=== PATIENT | male | born 1935 | race Caucasian/White ===

== ENCOUNTER 2018-10-02 11:01 | Emergency (ER) | payer BC ==
--- NOTE | 2018-10-02 11:18 | EDPHY ---
H & P Stated Complaint: FELL OUT OF BED/?FX R CLAVICLE ASSORTED SCRAPES Time Seen by Provider: 10/02/18 11:18 HPI/ROS: CHIEF COMPLAINT: Mechanical fall, right clavicle pain, right rib pain, abrasions HISTORY OF PRESENT ILLNESS: The patient presents to the ED after he accidentally fell out of bed landing on his right shoulder. The patient complains of moderate pain in his right clavicle, right shoulder and right ribs. The patient did not strike his head or lose consciousness. He is not anticoagulated. He has no complaints of headache or neck pain. The patient denies any acute numbness or weakness. He was ambulatory after the fall. REVIEW OF SYSTEMS: Constitutional: normal mentation Eyes: No visual changes ENT: no oral trauma Respiratory: As above, no difficulty breathing Cardiac: No chest pain Gastrointestinal: No nausea, no vomiting, no abdominal pain Genitourinary: No hematuria, no dysuria Musculoskeletal: As above Skin: As above Neurological: No headache, no numbness, no weakness Back: No midline pain Source: Patient Exam Limitations: No limitations - Personal History Current Tetanus Diphtheria and Acellular Pertussis (TDAP): Yes Tetanus Vaccine Date: 2006 - Medical/Surgical History Hx Asthma: No Hx Chronic Respiratory Disease: No Hx Diabetes: Yes Hx Cardiac Disease: Yes Hx Renal Disease: No Hx Cirrhosis: No Hx Alcoholism: No Hx HIV/AIDS: No Hx Splenectomy or Spleen Trauma: No Other PMH: OPEN HEART SURF/DIABETES - Social History Smoking Status: Never smoked - Physical Exam Exam: General Appearance: Alert, no distress Head: Atraumatic, no hematoma Eyes: Pupils equal, round, reactive ENT, Mouth: No hemotympanum, no oral trauma Neck: Nontender, trachea midline Respiratory: Tenderness to palpation right anterior chest wall, no subcutaneous emphysema, tenderness to palpation over right clavicle Cardiovascular: Regular rate and rhythm Abdomen: Abdomen is soft and nontender, pelvis stable Skin: Multiple superficial right-sided extremity abrasions Back: No midline T/L/S pain Extremities: Nontender, full range of motion Constitutional: Initial Vital Signs Temperature (C) 36.8 C 10/02/18 11:06 Heart Rate 66 10/02/18 11:06 Respiratory Rate 17 10/02/18 11:06 Blood Pressure 142/80 H 10/02/18 11:06 O2 Sat (%) 92 10/02/18 11:06 O2 Delivery Mode Room Air Allergies/Adverse Reactions: codeine phosphate [From Tylenol-Codeine #3] Allergy (Severe, Verified 10/02/18 11:06) Other-Enter Comments Home Medications: Medication Instructions Recorded Alendronate Sodium [Fosamax 70 MG 70 mg PO GILL@0700 01/21/13 (RX)] Ascorbic Acid [Vitamin C 250 mg 125 mg PO DAILY 01/21/13 (OTC)] Calcium Carbonate [Calcicarb] 1,300 mg PO BID 01/21/13 Chlorthalidone [Chlorthalidone 25 50 mg PO DAILY 01/21/13 mg (RX)] Cholecalciferol Vit D3 [Vitamin D3 800 units PO DAILY 01/21/13 400 units (OTC)] Insulin Glulisine [Apidra] 28 unit SQ DAILY 01/21/13 MAGNESIUM [Magnesium Oxide 200 mg] 265 mg PO BID 01/21/13 Polyethylene Glycol 3350 [Miralax 17 gm PO DAILY@18 01/21/13 17 gm (OTC)] Vitamin E [Vitamin E 200 units 200 unit PO DAILY 01/21/13 (OTC)] Sod Phos Di, [place]/K Phos [place] 250 mg PO BIDMEAL 01/27/13 [Phospha 250 Neutral Tablet] Zinc 10mg 10 mg PO BID 01/27/13 Aspirin [Ecotrin] 325 mg PO DAILY 05/02/13 Metoprolol Tartrate [Lopressor 25 12.5 mg PO BID 05/02/13 mg (RX)] Simvastatin [Zocor 40 mg (RX)] 40 mg PO DAILY18 05/02/13 Losartan Potassium 10/02/18 Medical Decision Making - Diagnostics Imaging Results: Imaging Impressions Shoulder X-Ray 10/02/18 11:18 Impression: 1. Comminuted displaced right mid clavicle fracture. 2. No definite right humeral head fracture or dislocation. Chest X-Ray 10/02/18 11:36 Impression: 1. Comminuted displaced mid right clavicle fracture. 2. Multiple old mid thoracic compression fractures with kyphosis, unchanged is 2012. Consider DEXA bone scan evaluation for osteoporosis. 3. Cardiomegaly and atherosclerotic aorta. 4. No pneumothorax. Clavicle X-Ray 10/02/18 11:37 Impression: Comminuted displaced right mid clavicle fracture. ED Course/Re-evaluation: The patient presents the emergency department for evaluation of right clavicle pain and rib pain following mechanical fall. The patient is neurologically intact. He did not strike his head or lose consciousness. The patient has tenderness to palpation over his ribs and clavicle. X-rays of these areas demonstrate a comminuted mid clavicle fracture. There is no evidence of obvious displaced rib fractures, pneumothorax or hemothorax. The patient was re-evaluated several times throughout her stay in the ED and has injuries which appear isolated to the clavicle. The patient will be placed in a sling. He is advised to use Tylenol as needed for pain. The patient will be discharged home with instructions to follow up with Dr. Kohler from Orthopedic surgery for further evaluation of his clavicle injury. Differential Diagnosis: Differential diagnosis considered includes clavicle fracture, pneumothorax, hemothorax - Data Points Medications Given: Discontinued Medications Tetracaine/Epinephrine/Lidocaine (Let Gel Topical) 1 ea TP EDNOW ONE Stop: 10/02/18 11:22 Last Admin: 10/02/18 11:30 Dose: 1 ea Departure - Departure Disposition: Home, Routine, Self-Care Clinical Impression: Right clavicle fracture, Chest wall contusion, Abrasions of multiple sites Condition: Good Instructions: Clavicle Fracture (ED) Additional Instructions: 1. Please follow up with the orthopedic surgeon you have been referred to for further evaluation of your clavicle fracture. Wear sling until that time. 2. Tylenol as needed for pain. 3. Return to the ED for markedly worsening symptoms, numbness, weakness, new pain, difficulty breathing or other concerns. Referrals: Anjali Kohler MD [Medical Doctor] - As per Instructions
[2018-10-02] MEDS ORDERED: LET GEL TOPICAL 1 EA SYR TP ONE (11:21)
[2018-10-02 13:12] VITALS: BP 152/78
== END 2018-10-02 13:14 | disposition home or self-care (01) ==
DX: S42.021A Displaced fracture of shaft of right clavicle, initial encounter for closed fracture (principal); S20.211A Contusion of right front wall of thorax, initial encounter; W06.XXXA Fall from bed, initial encounter; Y92.003 Bedroom of unspecified non-institutional (private) residence as the place of occurrence of the external cause; Y93.89 Activity, other specified

== ENCOUNTER 2018-10-19 17:54 | Inpatient (IN) | payer OTHER, BC ==
--- NOTE | 2018-10-19 18:27 | EDPHY ---
H & P Stated Complaint: weakness s/p pain meds Time Seen by Provider: 10/19/18 18:16 HPI/ROS: CHIEF COMPLAINT: Generalized weakness Limitations: pt condition, history via pt's HISTORY OF PRESENT ILLNESS: 83-year-old male presents with generalized weakness. He fell out of bed 2 weeks ago, was seen in the [facility] ED and was diagnosed with a right clavicular fx. After the injury, he developed substantial bruising on the anterior chest wall. The pain has been moderate since the injury and over the past couple of days he has had gradually increasing weakness. Today, he became acutely worse around noon, and now has generalized weakness and difficulty walking. Associated with moderate shortness of breath and some confusion. No recurrent fall and no anticoagulation. REVIEW OF SYSTEMS: complete 10 point ROS reviewed and is negative except for the noted elements in the HPI Source: Patient, Family - Personal History Current Tetanus Diphtheria and Acellular Pertussis (TDAP): Yes Tetanus Vaccine Date: 2006 - Medical/Surgical History Hx Asthma: No Hx Chronic Respiratory Disease: No Hx Diabetes: Yes Hx Cardiac Disease: Yes Hx Renal Disease: No Hx Cirrhosis: No Hx Alcoholism: No Hx HIV/AIDS: No Hx Splenectomy or Spleen Trauma: No Other PMH: OPEN HEART SURF/DIABETES - Social History Smoking Status: Never smoked Alcohol Use: Sober Drug Use: None Additional Social History: - Physical Exam Exam: General Appearance: Alert, tachypneic, ill appearing, mumbling speech Head: Atraumatic Eyes: conjunctival pallor, PERRLA, EOMI ENT, Mouth: No hemotympanum, no oral trauma, no bony tenderness Neck: Nontender, range of motion without pain Respiratory: Ecchymosis over the rt anterior chest wall and in rt axillary area , tachypneic, lungs clear bilaterally anteriorly Cardiovascular: Regular rate and rhythm Abdomen: Abdomen is soft and nontender Skin: no lacerations, no abrasions Back: No midline T/L/S tenderness Extremities: Pelvis is stable and nontender; no extremity tenderness or deformity, range of motion without pain Neurological: alert, oriented to person and place, motor/sensory grossly intact , gait not assessed Psychiatric: flat affect Constitutional: Initial Vital Signs Temperature (C) 35.9 C L 10/19/18 17:57 Heart Rate 81 10/19/18 17:57 Respiratory Rate 36 H 10/19/18 17:57 Blood Pressure 105/62 10/19/18 17:57 O2 Sat (%) 97 10/19/18 17:57 O2 Delivery Mode Room Air Allergies/Adverse Reactions: No Known Allergies Allergy (Verified 10/19/18 18:47) Home Medications: Medication Instructions Recorded Aspirin EC [Aspirin EC 325 mg (*)] 325 mg PO DAILY 10/19/18 Chlorthalidone [Chlorthalidone 25 50 mg PO DAILY 10/19/18 mg (*)] Herbals/Supplements -Info Only 1 ea PO DAILY 10/19/18 Hydrocodone/APAP 5/325 [Seymour 1 each PO Q6 PRN 10/19/18 5/325 (*)] Insulin Pump, Patient Own 1 ea MISC AD 10/19/18 Losartan Potassium [Cozaar 25 mg 25 mg PO DAILY18 10/19/18 (*)] Metoprolol Tartrate [Lopressor 25 12.5 mg PO BIDMEAL 10/19/18 mg (*)] Psyllium Husk (with Sugar) 12 gm PO DAILY@12 10/19/18 [Metamucil Powder] Simvastatin [Zocor] 40 mg PO DAILY18 10/19/18 Sod Phos Di, Holmes/K Phos Holmes 250 mg PO BIDMEAL 10/19/18 [Phosphorous 250 mg Tablet] traMADol [Ultram 50 mg (*)] 50 mg PO Q6 PRN 10/19/18 Medical Decision Making - Diagnostics EKG Interpretation: EKG interpreted by me reveals normal sinus rhythm, rate 74, right bundle branch block, ST segment depression in leads V3-V5. Interpretation: Abnormal EKG Imaging Results: Chest X-Ray 10/19/18 18:24 Impression: 1. Limited due to portable technique, with subacute right midclavicle fracture and multiple right rib fractures of indeterminate age. 2. Left lower lobe retrocardiac opacity may represent atelectasis, pneumonia, or pulmonary contusion. 3. Recommend CT chest. Chest CT 10/19/18 18:35 Impression: 1. Large right axillary acute hematoma. 2. Multiple right rib fractures with a few displaced. 3. Displaced comminuted right mid clavicle fracture. 4. Right scapula fracture. 5. Chronically elevated left hemidiaphragm. 6. Atherosclerotic thoracic aorta and extensive coronary artery calcifications without aneurysm. 7. No pneumothorax. Findings and recommendations discussed with Emergency Department physician, ALANA MILLER at 19:15 hour, 10/19/2018. Final report concurs with initial preliminary interpretation. Imaging: Discussed imaging studies w/ machine scallop cutter Radiologist, I viewed and interpreted images myself ED Course/Re-evaluation: This patient presents with chest pain and hypotension after a recent fall. He was moved to a resuscitation room after my initial evaluation. An IV was established and oxygen applied. The hypotension was transient and quickly responded to IV fluids. Looked and felt much better after IVF and oxygen. Mental status improved and pt able to answer questions appropriately. Stat chest x-ray reveals no evidence of hemothorax or pneumothorax. stat EKG reveals RBBB, troponin WNL. Consideration for ACS, though presentation more likely secondary to acute hemorrhage. Morphine 2mg IV given with relief in pain. He was sent to CT scan accompanied by the ED RN. CT revealed multiple rib fractures, a right scapula fracture and the previously visualized right clavicle fracture. He also has a large hematoma in the right axillary area as well as along the anterior chest wall, without active extravasation visualized on CT. Initial hematocrit is 25; repeat hematocrit 22. 1 unit packed red blood cells ordered after patient consent. Risks and benefits of blood transfusion discussed with the patient and the patient and his consented to blood transfusion. Dr. Beach was consulted and saw this patient in the emergency department. The patient will be admitted to the ICU. Differential Diagnosis: Differential diagnosis includes though it is not limited to ACS, pulm edema, hemothorax, pneumothorax, CVA, pneumonia. - Data Points Laboratory Results: Laboratory Results 10/19/18 17:58 10/19/18 17:58 10/19/18 18:30 Patient ABO/Rh A POSITIVE Antibody Screen NEGATIVE Crossmatch IS Only See Detail Medications Given: Atorvastatin Calcium (Lipitor) 20 mg PO DAILY18 JITENDRA Stop: 04/18/19 17:59 Last Admin: 10/20/18 17:51 Dose: 20 mg Chlorthalidone (Chlorthalidone) 50 mg PO DAILY JITENDRA Stop: 04/18/19 08:59 Last Admin: 10/20/18 08:44 Dose: 50 mg Sodium Chloride (Ns) 1,000 mls @ 75 mls/hr IV CONT JITENDRA Stop: 04/18/19 12:29 Last Admin: 10/20/18 10:30 Dose: 1,000 mls Insulin Human Regular (Humulin R) 0 unit SC ACHS JITENDRA PRN Reason: Protocol Stop: 04/18/19 17:29 Last Admin: 10/20/18 17:20 Dose: 20 units Losartan Potassium (Cozaar) 25 mg PO DAILY18 JITENDRA Stop: 04/18/19 17:59 Last Admin: 10/20/18 17:51 Dose: 25 mg Metoprolol Tartrate (Lopressor) 25 mg PO BID [facility] Stop: 04/17/19 20:59 Last Admin: 10/20/18 08:43 Dose: 25 mg Miscellaneous Medication (Sod Phos Di, Holmes/K Phos Holmes [Phosphorous 250 Mg Tablet]) 250 mg PO BIDMEAL [facility] Stop: 04/18/19 17:59 Last Admin: 10/20/18 18:01 Dose: Not Given Morphine Sulfate (Morphine) 2 mg IVP Q1HR PRN PRN Reason: Pain, Severe Unable to Take PO Stop: 10/29/18 20:13 Last Admin: 10/19/18 23:12 Dose: 2 mg Psyllium Hydrophilic Mucilloid (Metamucil/Konsyl) 1 each PO DAILY@1200 [facility] Stop: 04/18/19 11:59 Last Admin: 10/20/18 12:16 Dose: 1 each Senna/Docusate Sodium (Senokot-S) 1 - 2 tab PO BID JITENDRA PRN Reason: Protocol Stop: 04/17/19 20:59 Last Admin: 10/20/18 08:44 Dose: 1 tab Discontinued Medications Sodium Chloride (Ns) 500 mls @ 1,000 mls/hr IV EDNOW ONE PRN Reason: Protocol Stop: 10/19/18 19:06 Last Admin: 10/19/18 18:44 Dose: 500 mls Potassium Chloride (Potassium Cl 10 Meq (Premix)) 100 mls @ 100 mls/hr IV Q1H [facility] Stop: 10/19/18 21:29 Last Admin: 10/19/18 21:00 Dose: Not Given Potassium Chloride 20 meq/ (Sodium Chloride) 1,000 mls @ 75 mls/hr IV CONT [facility] Stop: 04/17/19 20:29 Last Admin: 10/19/18 23:13 Dose: 1,000 mls Insulin Glargine (Lantus Syringe) 10 units SC DAILY [facility] Stop: 04/18/19 08:59 Last Admin: 02/20/19 12:12 Dose: Not Given Insulin Human Lispro (Humalog Lispro) 0 unit SC TIDMEAL IJTENDRA PRN Reason: Protocol Stop: 04/18/19 07:59 Last Admin: 10/20/18 11:49 Dose: Not Given Insulin Human Lispro (Humalog Lispro) 8 unit SC ONCE ONE Stop: 10/20/18 00:36 Last Admin: 10/20/18 00:47 Dose: 8 units Insulin Human Lispro (Humalog Lispro) 5 unit SC ONCE ONE Stop: 10/20/18 08:28 Last Admin: 10/20/18 11:48 Dose: Not Given Insulin Human Lispro (Humalog Lispro) 12 unit SC ONCE ONE Stop: 10/20/18 11:47 Last Admin: 10/20/18 12:10 Dose: 12 units Insulin Human Regular (Humulin R) 0 unit SC ACHS JITENDRA PRN Reason: Protocol Stop: 04/18/19 11:29 Last Admin: 10/20/18 12:18 Dose: Not Given Morphine Sulfate (Morphine) 2 mg IVP EDNOW ONE Stop: 10/19/18 18:49 Last Admin: 10/19/18 19:10 Dose: 2 mg Point of Care Test Results: Chemistry 10/19/18 18:23 POC Sodium 135 mEq/L mEq/L (135-145) POC Potassium 2.7 mEq/L L* mEq/L (3.3-5.0) POC Chloride 92 mEq/L L mEq/L (97-110) POC Total CO2 28 mEq/L mEq/L (22-31) POC BUN 17 mg/dL mg/dL (7-23) POC Creatinine 0.9 mg/dL mg/dL (0.7-1.3) POC Glucose 108 mg/dL H mg/dL (70-100) ISTAT H&H 10/19/18 18:23 POC Hgb 9.2 gm/dL L gm/dL (13.7-17.5) POC Hct 27 % L % (40-51) Departure - Departure Disposition: [facility] Inpatient Acute Clinical Impression: Severe anemia Multiple rib fractures Qualifiers: Encounter type: initial encounter Fracture type: closed Laterality: right Qualified Code(s): S22.41XA - Multiple fractures of ribs, right side, initial encounter for closed fracture Scapula fracture Qualifiers: Encounter type: initial encounter Scapula location: body Fracture type: closed Fracture alignment: nondisplaced Laterality: right Qualified Code(s): S42.114A - Nondisplaced fracture of body of scapula, right shoulder, initial encounter for closed fracture Clavicle fracture Qualifiers: Encounter type: subsequent encounter Clavicle location: unspecified part of clavicle Fracture type: closed Fracture alignment: displaced Laterality: right Fracture healing: with routine healing Qualified Code(s): S42.001D - Fracture of unspecified part of right clavicle, subsequent encounter for fracture with routine healing Condition: Serious
[2018-10-19 18:29] LABS: PLATELET COUNT 297 10^3/uL (150-400)
[2018-10-19] MEDS ORDERED: POTASSIUM Cl (KCl) 100 ML IV ONE (18:36)
[2018-10-19] MEDS ORDERED: NS 500 ML IV ONE (18:37)
[2018-10-19] MEDS ORDERED: IOPAMIDOL (ISOVUE-300) 100 ML BTL ONE (18:45)
[2018-10-19] MEDS ORDERED: POTASSIUM Cl (KCl) 10 MEQ/100 ML BAG IV ONE (19:17)
[2018-10-19] MEDS: POTASSIUM Cl (KCl) 100 ML IV SCH ×2 (19:27→21:00)
[2018-10-19 19:31] LABS: INR 1.12 (0.83-1.16); PROTIME(PATIENT) 14.6 SEC (12.0-15.0)
[2018-10-19] MEDS: METOPROLOL TARTRATE 25 MG TAB PO SCH (20:00)
--- NOTE | 2018-10-19 20:13 | PDGENHP ---
History and Physical - Chief Complaint right sided chest pain - History of Present Illness 83 y/o male who fell at home on October 02, 2018. Patient was seen in the ED and released with a right clavicle fracture. He was seen in the outpatient clinic by Dr. Todd. For the past several days he experienced increasing pain in the right chest wall and his called EMR. He was seen by Dr. Cooper and surgical consultation was requested. He presented with mild hypotension responding to a 500ml bolus of saline. His Hct was 25% and CT imaging of the chest showed right 1st-6th rib fxs and a non-displaced scapular body fracture in addition to the distal 1/3 clavicle fx. He has a large chest wall hematoma without apparent arterial blush on contrast phase study. He is feeling a little better after some fluid and IV morphine. He appears frail and has a weak voice. His is at the bedside. History Information - Allergies/Home Medication List Allergies/Adverse Reactions: No Known Allergies Allergy (Verified 10/19/18 18:47) Home Medications: Alendronate Sodium [Fosamax 70 MG (RX)] 70 mg PO GILL@0700 01/21/13 [Last Taken ] Ascorbic Acid [Vitamin C 250 mg (OTC)] 125 mg PO DAILY 01/21/13 [Last Taken 10/13] Calcium Carbonate [Calcicarb] 1,300 mg PO BID 01/21/13 [Last Taken 05/02/13 08: 00] Cholecalciferol Vit D3 [Vitamin D3 400 units (OTC)] 800 units PO DAILY 01/21/13 [Last Taken 05/02/13] Insulin Glulisine [Apidra] 28 unit SQ DAILY 01/21/13 [Last Taken 05/02/13] MAGNESIUM [Magnesium Oxide 200 mg] 265 mg PO BID 01/21/13 [Last Taken 05/02/13 08:00] Polyethylene Glycol 3350 [Miralax 17 gm (OTC)] 17 gm PO DAILY@18 01/21/13 [Last Taken 05/01/13] Vitamin E [Vitamin E 200 units (OTC)] 200 unit PO DAILY 01/21/13 [Last Taken 10/13] Zinc 10mg 10 mg PO BID 01/27/13 [Last Taken 05/02/13 08:00] Aspirin [Ecotrin] 325 mg PO DAILY 05/02/13 [Last Taken 05/02/13] Chlorthalidone [Chlorthalidone 25 mg (*)] 50 mg PO DAILY 10/19/18 [Last Taken Unknown] Losartan Potassium [Cozaar 25 mg (*)] 25 mg PO DAILY 10/19/18 [Last Taken Unknown] Metoprolol Tartrate [Lopressor 25 mg (*)] 25 mg PO BID 10/19/18 [Last Taken Unknown] Simvastatin [Zocor] 40 mg PO DAILY18 10/19/18 [Last Taken Unknown] Sod Phos Di, Wise/K Phos Wise [Phosphorous 250 mg Tablet] 250 mg PO BID [Last Taken Unknown] traMADol [Ultram 50 mg (*)] 50 mg PO Q4 10/19/18 [Last Taken Unknown] I have personally reviewed and updated: family history, medical history, social history, surgical history - Past Medical History coronary artery disease, diabetes type 1 - Surgical History Reports: coronary bypass surgery, hernia repair - Family History Positive for: non-pertinent - Social History Smoking Status: Never smoked Alcohol Use: None Drug Use: None Additional social history: PCP Dr. Marylin Hyde Review of Systems Review of Systems: Constitutional: Reports: malaise, recent injury, weakness Cardiac: Reports: chest pain Respiratory: Reports: shortness of breath Gastrointestinal: Reports: constipation Genitourinary: Reports: no symptoms Muscolosketal: Reports: other (chest wall pain with movement, deep breathing) Skin: Reports: other (abrasions right forearm and elbow) Neurological: Reports: weakness Hematologic/Lymphatic: Reports: anemia Physical Exam Physical Exam: Temp Pulse Resp BP Pulse Ox 35.9 C L 73 26 H 120/54 L 91 L 10/19/18 17:57 10/19/18 19:12 10/19/18 19:12 10/19/18 19:12 10/19/18 19:12 Constitutional: uncomfortable Eyes: PERRL, anicteric sclera, EOMI Ears, Nose, Mouth, Throat: dry mucous membranes Cardiovascular: regular rate and rhythym, no murmur, rub, or gallop Peripheral Pulses: 1+: dorsalis-pedis (R), dorsalis-pedis (L) Respiratory: reduced air movement, dullness to percussion, other (right chest wall ecchymosis extending fromthe clavicle to the mid abdomen and posteriorly to the back) Gastrointestinal: soft, non-tender abdomen Genitourinary: no bladder fullness Skin: abrasion (right forearm), other (pale) Musculoskeletal: generalized weakness Neurologic: AAOx3, weakness Psychiatric: interacting appropriately, not anxious Lymph, Heme, Immunologic: no supraclavicular LAD Lab Data & Imaging Review 10/19/18 20:05 10/19/18 17:58 WBC 9.79 10^3/uL (3.80-9.50) H 10/19/18 17:58 RBC 2.57 10^6/uL (4.40-6.38) L 10/19/18 17:58 Hgb 8.2 g/dL (13.7-17.5) L 10/19/18 17:58 POC Hgb 9.2 gm/dL (13.7-17.5) L 10/19/18 18:23 Hct 25.2 % (40.0-51.0) L 10/19/18 17:58 POC Hct 27 % (40-51) L 10/19/18 18:23 MCV 98.1 fL (81.5-99.8) 10/19/18 17:58 MCH 31.9 pg (27.9-34.1) 10/19/18 17:58 MCHC 32.5 g/dL (32.4-36.7) 10/19/18 17:58 RDW 13.7 % (11.5-15.2) 10/19/18 17:58 Plt Count 297 10^3/uL (150-400) 10/19/18 17:58 MPV 9.3 fL (8.7-11.7) 10/19/18 17:58 Neut % (Auto) 73.7 % (39.3-74.2) 10/19/18 17:58 Lymph % (Auto) 14.8 % (15.0-45.0) L 10/19/18 17:58 Wise % (Auto) 9.8 % (4.5-13.0) 10/19/18 17:58 Eos % (Auto) 0.7 % (0.6-7.6) 10/19/18 17:58 Baso % (Auto) 0.4 % (0.3-1.7) 10/19/18 17:58 Nucleat RBC Rel Count 0.0 % (0.0-0.2) 10/19/18 17:58 Absolute Neuts (auto) 7.21 10^3/uL (1.70-6.50) H 10/19/18 17:58 Absolute Lymphs (auto) 1.45 10^3/uL (1.00-3.00) 10/19/18 17:58 Absolute Monos (auto) 0.96 10^3/uL (0.30-0.80) H 10/19/18 17:58 Absolute Eos (auto) 0.07 10^3/uL (0.03-0.40) 10/19/18 17:58 Absolute Basos (auto) 0.04 10^3/uL (0.02-0.10) 10/19/18 17:58 Absolute Nucleated RBC 0.00 10^3/uL (0-0.01) 10/19/18 17:58 Immature Gran % 0.6 % (0.0-1.1) 10/19/18 17:58 Immature Gran # 0.06 10^3/uL (0.00-0.10) 10/19/18 17:58 PT 14.6 SEC (12.0-15.0) 10/19/18 17:50 INR 1.12 (0.83-1.16) 10/19/18 17:50 APTT 26.3 SEC (23.0-38.0) 10/19/18 17:50 POC Sodium 135 mEq/L (135-145) 10/19/18 18:23 Sodium 131 mEq/L (135-145) L 10/19/18 17:58 POC Potassium 2.7 mEq/L (3.3-5.0) L* 10/19/18 18:23 Potassium 3.0 mEq/L (3.5-5.2) L 10/19/18 17:58 POC Chloride 92 mEq/L (97-110) L 10/19/18 18:23 Chloride 95 mEq/L (97-110) L 10/19/18 17:58 Carbon Dioxide 29 mEq/l (22-31) 10/19/18 17:58 POC Total CO2 28 mEq/L (22-31) 10/19/18 18:23 Anion Gap 7 mEq/L (6-14) 10/19/18 17:58 POC BUN 17 mg/dL (7-23) 10/19/18 18:23 BUN 19 mg/dL (7-23) 10/19/18 17:58 Creatinine 0.9 mg/dL (0.7-1.3) 10/19/18 17:58 POC Creatinine 0.9 mg/dL (0.7-1.3) 10/19/18 18:23 Estimated GFR > 60 10/19/18 17:58 Glucose 103 mg/dL (70-100) H 10/19/18 17:58 POC Glucose 108 mg/dL (70-100) H 10/19/18 18:23 Calcium 8.9 mg/dL (8.5-10.4) 10/19/18 17:58 POC Troponin I 0.05 ng/mL (0.00-0.08) 10/19/18 19:38 Patient ABO/Rh A POSITIVE 10/19/18 18:30 Antibody Screen NEGATIVE 10/19/18 18:30 Crossmatch IS Only See Detail 10/19/18 18:30 Visualized and Interpreted Chest x-ray results: Yes Chest X-Ray results: other (elevated left hemidiaphragm, lung field clear/prior sternotomy/distal clavicle fx./chest wall hematoma) Visualized and Interpreted imaging results: Yes Interpretation: CT reviewed on PACS. right 1-6 rib fx with minimal displacement. Large chest wall hematoma anterolateral and extending posteriorly to the scapula. scapular body fx/clavicle fx. No hemo/pneumothorax Assessment & Plan Assessment: 17 days s/p fall with multiple right rib fractures, scapular fracture, clavicle fracture significant chest wall hematoma with blood loss anemia-no active arterial extravasation on CT CAD on ASA IDDM on insulin pump HTN Plan: Admit ICU/SDU for observation serial H/H blood transfusion if H/H decline further (discussed with patient and informed consent was obtained) Hospitalist consult requested and discussed with Dr. Gurvinder Mccoy ASA and pharma VTE prophylaxis until bleeding has clearly stopped
[2018-10-19] MEDS ORDERED: ONDANSETRON 4 MG/2 ML VIAL IVP PRN (20:14)
[2018-10-19] MEDS ORDERED: BISACODYL 10 MG SUPP PR PRN (20:20)
[2018-10-19] MEDS ORDERED: POLYETHYLENE GLYCOL 3350 17 GM PKT PO PRN (20:20)
[2018-10-19] MEDS ORDERED: LACTULOSE 20 GM/30 ML UDCUP PO PRN (20:20)
[2018-10-19] MEDS ORDERED: MAGNESIUM HYDROXIDE 30 ML UDCUP PO PRN (20:20)
[2018-10-19] MEDS ORDERED: POTASSIUM Cl (KCl) 20 MEQ in 1/2 NS 1,000 ML IV SCH (20:30)
[2018-10-19] MEDS: SENNOSIDES/DOCUSATE SODIUM TAB PO SCH (21:00)
[2018-10-19] MEDS ORDERED: D50W 25 GM/50 ML VIAL IVP PRN (21:12)
--- NOTE | 2018-10-19 21:20 | PDHOSCONS ---
History and Physical - Chief Complaint Weakness - History of Present Illness Romulo Emerson is a 83 yo M with a PMHx of CABG in 2013, Insulin dependent DM, HTN who presents to [facility] for weakness, found to have large chest wall hematoma. Hospital medicine consulted for medical management. Patient currently reports pain in chest, worse with inspiration. He has not been eating or drinking much in past few days since the injury. History Information - Allergies/Home Medication List Allergies/Adverse Reactions: No Known Allergies Allergy (Verified 10/19/18 18:47) Home Medications: Aspirin EC [Aspirin EC 325 mg (*)] 325 mg PO DAILY 10/19/18 [Last Taken 10/19/18 ] Chlorthalidone [Chlorthalidone 25 mg (*)] 50 mg PO DAILY 10/19/18 [Last Taken ] Herbals/Supplements -Info Only 1 ea PO DAILY 10/19/18 [Last Taken Unknown] Insulin Pump, Patient Own 1 ea MISC AD 10/19/18 [Last Taken 10/19/18] Losartan Potassium [Cozaar 25 mg (*)] 25 mg PO DAILY18 10/19/18 [Last Taken ] Metoprolol Tartrate [Lopressor 25 mg (*)] 12.5 mg PO BIDMEAL 10/19/18 [Last Taken 10/19/18 09:00] Psyllium Husk (with Sugar) [Metamucil Powder] 12 gm PO DAILY@12 10/19/18 [Last Taken 10/19/18] Simvastatin [Zocor] 40 mg PO DAILY18 10/19/18 [Last Taken 10/18/18] Sod Phos Di, Yoakum/K Phos Yoakum [Phosphorous 250 mg Tablet] 250 mg PO BIDMEAL [Last Taken 10/19/18 09:00] traMADol [Ultram 50 mg (*)] 50 mg PO Q6 PRN 10/19/18 [Last Taken 10/15/18] I have personally reviewed and updated: family history, social history, surgical history - Past Medical History coronary artery disease, diabetes type 1 - Surgical History Reports: coronary bypass surgery, hernia repair - Family History Positive for: non-pertinent - Social History Smoking Status: Never smoked Alcohol Use: None Drug Use: None Additional social history: PCP Dr. Marylin Hyde Review of Systems Review of Systems: ROS: 10pt was reviewed & negative except for what was stated in HPI & below Physical Exam Physical Exam: Temp Pulse Resp BP Pulse Ox 36.5 C 79 26 H 112/58 L 94 10/19/18 21:10 10/19/18 21:10 10/19/18 21:10 10/19/18 21:10 10/19/18 21:10 Constitutional: chronically ill appearing Ears, Nose, Mouth, Throat: moist mucous membranes Cardiovascular: regular rate and rhythym Respiratory: clear to auscultation Gastrointestinal: soft, non-tender abdomen Skin: warm Musculoskeletal: pain with ROM Neurologic: AAOx3 Psychiatric: interacting appropriately Lab Data & Imaging Review 10/19/18 20:05 10/19/18 17:58 WBC 9.79 10^3/uL (3.80-9.50) H 10/19/18 17:58 RBC 2.57 10^6/uL (4.40-6.38) L 10/19/18 17:58 Hgb 7.4 g/dL (13.7-17.5) L 10/19/18 20:05 POC Hgb 9.2 gm/dL (13.7-17.5) L 10/19/18 18:23 Hct 22.3 % (40.0-51.0) L 10/19/18 20:05 POC Hct 27 % (40-51) L 10/19/18 18:23 MCV 98.1 fL (81.5-99.8) 10/19/18 17:58 MCH 31.9 pg (27.9-34.1) 10/19/18 17:58 MCHC 32.5 g/dL (32.4-36.7) 10/19/18 17:58 RDW 13.7 % (11.5-15.2) 10/19/18 17:58 Plt Count 297 10^3/uL (150-400) 10/19/18 17:58 MPV 9.3 fL (8.7-11.7) 10/19/18 17:58 Neut % (Auto) 73.7 % (39.3-74.2) 10/19/18 17:58 Lymph % (Auto) 14.8 % (15.0-45.0) L 10/19/18 17:58 Yoakum % (Auto) 9.8 % (4.5-13.0) 10/19/18 17:58 Eos % (Auto) 0.7 % (0.6-7.6) 10/19/18 17:58 Baso % (Auto) 0.4 % (0.3-1.7) 10/19/18 17:58 Nucleat RBC Rel Count 0.0 % (0.0-0.2) 10/19/18 17:58 Absolute Neuts (auto) 7.21 10^3/uL (1.70-6.50) H 10/19/18 17:58 Absolute Lymphs (auto) 1.45 10^3/uL (1.00-3.00) 10/19/18 17:58 Absolute Monos (auto) 0.96 10^3/uL (0.30-0.80) H 10/19/18 17:58 Absolute Eos (auto) 0.07 10^3/uL (0.03-0.40) 10/19/18 17:58 Absolute Basos (auto) 0.04 10^3/uL (0.02-0.10) 10/19/18 17:58 Absolute Nucleated RBC 0.00 10^3/uL (0-0.01) 10/19/18 17:58 Immature Gran % 0.6 % (0.0-1.1) 10/19/18 17:58 Immature Gran # 0.06 10^3/uL (0.00-0.10) 10/19/18 17:58 PT 14.6 SEC (12.0-15.0) 10/19/18 17:50 INR 1.12 (0.83-1.16) 10/19/18 17:50 APTT 26.3 SEC (23.0-38.0) 10/19/18 17:50 POC Sodium 135 mEq/L (135-145) 10/19/18 18:23 Sodium 131 mEq/L (135-145) L 10/19/18 17:58 POC Potassium 2.7 mEq/L (3.3-5.0) L* 10/19/18 18:23 Potassium 3.0 mEq/L (3.5-5.2) L 10/19/18 17:58 POC Chloride 92 mEq/L (97-110) L 10/19/18 18:23 Chloride 95 mEq/L (97-110) L 10/19/18 17:58 Carbon Dioxide 29 mEq/l (22-31) 10/19/18 17:58 POC Total CO2 28 mEq/L (22-31) 10/19/18 18:23 Anion Gap 7 mEq/L (6-14) 10/19/18 17:58 POC BUN 17 mg/dL (7-23) 10/19/18 18:23 BUN 19 mg/dL (7-23) 10/19/18 17:58 Creatinine 0.9 mg/dL (0.7-1.3) 10/19/18 17:58 POC Creatinine 0.9 mg/dL (0.7-1.3) 10/19/18 18:23 Estimated GFR > 60 10/19/18 17:58 Glucose 104 mg/dL (70-100) H 10/19/18 17:58 POC Glucose 108 mg/dL (70-100) H 10/19/18 18:23 Calcium 8.9 mg/dL (8.5-10.4) 10/19/18 17:58 POC Troponin I 0.05 ng/mL (0.00-0.08) 10/19/18 19:38 Patient ABO/Rh A POSITIVE 10/19/18 18:30 Antibody Screen NEGATIVE 10/19/18 18:30 Crossmatch IS Only See Detail 10/19/18 18:30 Assessment & Plan Assessment: Insulin Dependent Diabetes - Patient uses insulin pump at home - Wound hold insulin pump given decreased PO intake - SSI insulin ordered HTN - Would hold home anti-hypertensives in setting of acute blood loss anemia - Hold chlorthalidone and Losartan, restart as BP tolerates CABG in 2012 - Patient remains on ASA - Would hold in setting of hematoma and acute blood loss anemia - Restart as tolerated Clavicular Fracture, Chest Wall Hematoma - Defer to surgery for evaluation and management. Thank you for the consult. Hospital medicine will continue to follow along during patient's hospitalization.
[2018-10-20] MEDS ORDERED: INSULIN LISPRO 100 UNIT/ML SC ONE ×3 (00:35→11:46)
[2018-10-20 01:41] LABS: PLATELET COUNT 193 10^3/uL (150-400)
[2018-10-20] MEDS ORDERED: INSULIN LISPRO 100 UNIT/ML SC SCH (08:00)
--- NOTE | 2018-10-20 08:05 | TRAUMAPN ---
Trauma Progress Note - Problem/Surgery Performed (1) Fall at home Assessment/Plan: mechanism of injury on 10/02/18 Qualifiers: Encounter type: initial encounter Qualified Code(s): W19.XXXA - Unspecified fall, initial encounter; Y92.009 - Unspecified place in unspecified non-institutional (private) residence as the place of occurrence of the external cause; Y92.009 - Unspecified place in unspecified non-institutional ( private) residence as the place of occurrence of the external cause (2) Clavicle fracture Assessment/Plan: non-operative management recommended by Dr. Todd Qualifiers: Encounter type: initial encounter Clavicle location: lateral end Laterality: right (3) Multiple rib fractures Assessment/Plan: contributing to chest wall bleeding most likely but without hemopneumothorax Qualifiers: Encounter type: initial encounter (4) Scapula fracture Assessment/Plan: contributing to pain, but will not require intervention Qualifiers: Encounter type: initial encounter Scapula location: body Fracture alignment: nondisplaced Laterality: right (5) Severe anemia Assessment/Plan: blood loss into chest wall as etiology Hct 25 % s/p 2 units PRBC (6) IDDM (insulin dependent diabetes mellitus) Assessment/Plan: currently on an insulin sliding scale/normally uses an insulin pump that needs to be reprogramed hospitalist consult appreciated Assessment/Plan: delayed presentation for sequelae of blood loss anemia due to multiple right sided rib fractures will continue to monitor H/H PT/OT/ST consults Subjective: awake and alert, complains of pain "everywhere" No headache, visual disturbances, abdominal pain Objective: Vital Signs Temp Pulse Resp BP Pulse Ox 36.7 C 101 H 25 H 126/52 H 99 10/20/18 07:51 10/20/18 07:51 10/20/18 07:51 10/20/18 07:51 10/20/18 04:00 Laboratory Results 10/20/18 00:55 10/20/18 05:35 10/19/18 10/20/18 10/21/18 05:59 05:59 05:59 Intake Total 1858 Output Total 450 Balance 1408 PT 14.6 SEC (12.0-15.0) 10/19/18 17:50 INR 1.12 (0.83-1.16) 10/19/18 17:50 - C-Spine Clearance Cervical Spine Cleared: Yes Provider who Cleared Cervical Spine: YONG Physical Exam - Physical Exam General Appearance: alert, mild distress EENT: PERRL/EOMI, normal ENT inspection, TMs normal Neck: non-tender Respiratory: decreased breath sounds Cardiac/Chest: regular rate, rhythm, tachycardia Abdomen: normal bowel sounds, non-tender, soft, distended Male Genitalia: deferred Rectal: deferred Skin: warm/dry, other (ecchymosis right chest wall) Extremities: normal range of motion, non-tender Neuro/Psych: no motor/sensory deficits, alert, normal mood/affect, oriented x 3 Time Spent w/Patient (minutes): 15
[2018-10-20] MEDS ORDERED: D50W 25 GM/50 ML SYR IVP PRN ×3 (08:32→15:29)
[2018-10-20] MEDS: METOPROLOL TARTRATE 25 MG TAB PO SCH ×2 (08:43→20:52)
[2018-10-20] MEDS: SENNOSIDES/DOCUSATE SODIUM TAB PO SCH ×2 (08:44→20:52)
[2018-10-20 08:47] LABS: PLATELET COUNT 199 10^3/uL (150-400)
[2018-10-20] MEDS ORDERED: INSULIN GLARGINE 100 UNITS/ML UNIT SC SCH (09:00)
[2018-10-20] MEDS ORDERED: CHLORTHALIDONE 25 MG TAB PO SCH (09:00)
[2018-10-20] MEDS: NS 1,000 ML IV SCH ×2 (10:30→22:00)
[2018-10-20] MEDS ORDERED: INSULIN REGULAR HUMAN 100 UNIT/ML UNIT SC SCH (11:30)
[2018-10-20] MEDS ORDERED: oxyCODONE IR 5 MG TAB PO PRN (11:49)
[2018-10-20] MEDS ORDERED: NS 1,000 ML IV SCH (12:00)
[2018-10-20] MEDS: PSYLLIUM METAMUCIL 1 PKT PO SCH (12:16)
--- NOTE | 2018-10-20 12:19 | PDMN ---
Medical Necessity Medical necessity: Pt meets IP criteria per & MCG M-545; est los >2 mn for eval/tx of multiple R rib fxs (1-6), scapular fx, clavicle fx & chest wall hematoma w/blood loss anemia s/p mechanical fall; requiring further SDU monitoring, follow-up labs w/possible blood transfusion, Hospitalist consult & therapies; comorbid advanced age, diabetes, CAD, CABG on ASA; per H&P & order
--- NOTE | 2018-10-20 12:58 | WOCRNPDOC ---
WOCRN Advanced Assessment Note - Skin Integrity Problem, Advanced Assess Right Elbow Scab Dressing Type: Open to Air Apoorva Wound Tissue: Contused, Thin Apoorva Wound Swelling: None Wound Bed Constitution: Scab Site Odor: None Site Measurement - Head-to-Toe Length X Width X Depth (cm): distal 1.5x3.2xscab ; proximal [id number] Skin Integrity Problem Comment: Per pt and wound from fall 3weeks ago. applied Nuskin. No evidence of infection. Discussed reccomendation of keeping wound bed moist. All questions answered. Wound care will sign off.
--- NOTE | 2018-10-20 13:30 | ASMTCASEMG ---
Living Arrangements What is your living Answers: With Spouse arrangement? Who do you live with? Type Of Residence What kind of residence do Answers: House you live in? Discharge Plan Comments Coordination Status Comments Notes: Patient is an 83yo male who fell at home on 10-02-2018 and was seen in the ED and released with a right clavicle fracture. Patient was found to have a large chest wall hematoma and 1st-6th rib fractures and a non-displaced scapular body fracture. PT/OT/Inpatient rehab evals have been ordered. D/C plan TBD. CM will follow. Date Signed: 10/20/2018 01:29 PM Electronically Signed By:Arianna Aguila LCSW
--- NOTE | 2018-10-20 13:52 | GCON ---
[f rep st] CONSULTATION CRITICAL CARE CONSULTATION DATE OF CONSULTATION: 10/20/2018 HISTORY OF PRESENT ILLNESS: This patient is an 83-year-old male admitted late yesterday after experi encing substantial bruising and weakness, as well as shortness of breath and hypotension. He had a m echanical fall on 10/02/2018, resulting in a right clavicular fracture. He was managed in the emerge ncy department, and sent home with a sling. He returned yesterday with increasing weakness and bruis ing, shortness of breath. His blood pressure was low, but it did respond well to IV fluids. He was admitted to the intensive care unit under the trauma service and re-evaluated. He received 1 unit of blood, which is transfusing at this time. He is quite concerned about his diabetes management, and was highly specific about the type of insulin that he receives, specifying Humalog over NovoLog, but otherwise had prompt resolution of his dyspnea, as well as his hypotension. He is a nonsmoker, but h is only pulmonary history is a remote left diaphragmatic paralysis that underwent plication in the [facility], but is otherwise fairly stable. There was no pneumothorax seen on the CT scan that followed. Th ey did show a hematoma, and the right clavicular fracture, as well as rib fractures. REVIEW OF SYSTEMS: Otherwise negative. PAST MEDICAL HISTORY: Includes: 1. Coronary artery disease. 2. Hyperlipidemia. 3. Hypertension. 4. Diabetes. 5. Osteoporosis. 6. Left hemidiaphragmatic paralysis. 7. BPH. 8. Right femoral pseudoaneurysm. 9. Compression fractures in 2012. PAST SURGICAL HISTORY: Includes: 1. Transurethral resection of the prostate. 2. Cardiac stents. 3. Coronary artery bypass graft. 4. Diaphragmatic plication. SOCIAL HISTORY: He is a nonsmoker. No alcohol related illness or recreational drugs. FAMILY HISTORY: Noncontributory. CURRENT MEDICATIONS: Include Baxter, Lipitor, Dulcolax, chlorthalidone, Cozaar, Lopressor, morphine, Zofran, oxycodone, MiraLAX, Metamucil, Senokot, normal saline, Ultram. He was on half-normal saline with 20 mEq of potassium, and he has been chronically on potassium replacement, which he recently ran out of. PHYSICAL EXAMINATION: VITAL SIGNS: His blood pressure this morning was 126/52, heart rate 101, resp irations 25, oxygen saturation 99% on room air. GENERAL: He is a pleasant gentleman in no apparent distress. He is able to speak in full sentences without using accessory muscles for breathing. HEEN T: Pupils are equally round and reactive to light. Nonicteric and noninjected. Mucous membranes ar e moist without erythema or exudate. NECK: Supple without adenopathy. CHEST WALL: Shows significa nt ecchymoses in various stages of healing. Breath sounds are clear to auscultation bilaterally with out wheezes, rubs or rales. HEART: Regular rate and rhythm without obvious murmur. ABDOMEN: Soft, nontender, nondistended without hepatosplenomegaly. EXTREMITIES: Show no clubbing, cyanosis or esme ma. I did not thoroughly examine his right upper extremity, which was in a sling. OBJECTIVE DATA: Includes his hematocrit of 25 on admission, which did drop to 22.3, and is getting t ransfused. His white count was 9.8. It is 11.9 now. Platelets were normal at 199. Sodium is 130. Potassium initially 2 7, now 4.1. Creatinine normal. Glucose running in the 230-400 range. Tropon in was negative. CT and chest x-ray as described above, with the elevated left hemidiaphragm and the comminuted displa mallorie right clavicular fracture. ASSESSMENT AND PLAN: 1. Hypotension. This did seem to resolve well with intravenous fluids, may have been complicated by narcotic usage. He is also getting transfusions, which should help substantially. 2. Anemia. He obviously has a hematoma. There is no obvious bleeding. His coag parameters are nor mal. He was taking aspirin, which is currently being held. 3. Diabetes. I think it is fine to use his home regimen. His blood sugar should be able to get und er better control for that. 4. Elevated diaphragm. This is an old problem and still exist, but is not presenting as an acute is florian currently. /[id number]/MODL
[2018-10-20 15:37] LABS: PLATELET COUNT 204 10^3/uL (150-400)
[2018-10-20] MEDS: INSULIN REGULAR HUMAN 100 UNIT/ML UNIT SC SCH ×2 (17:20→20:52)
[2018-10-20] MEDS: ATORVASTATIN CALCIUM 20 MG TAB PO SCH (17:51)
[2018-10-20] MEDS: LOSARTAN POTASSIUM 25 MG TAB PO SCH (17:51)
[2018-10-20] MEDS: PHOSPHOROUS PO SCH (18:01)
--- NOTE | 2018-10-20 20:25 | HOSPPROG ---
Hospitalist Progress Note Assessment/Plan: * DM -insulin pump currently not functional -refuses long acting insulin -continue high dose sliding scale per patient request * Clavicle fracture with chest wall hematoma * Rib fracture x 6 -pulmonary hygiene * Acute blood loss anemia -s/p transfusion * CAD s/p CABG -holding ASA * HTN -Cozaar * Hyponatremia -likely due to hypovolemia -change IVF NS -consider DC chlorthalidone if persists Subjective: Worried about going into DKA but won't take recommended Lantus insulin. Objective: Vital Signs Temp Pulse Resp BP Pulse Ox 36.4 C 85 23 H 117/84 H 99 10/20/18 16:00 10/20/18 16:00 10/20/18 16:00 10/20/18 17:51 10/20/18 16:00 Laboratory Results 10/20/18 15:27 10/20/18 05:35 10/19/18 10/20/18 10/21/18 05:59 05:59 05:59 Intake Total 1858 1400 Output Total 450 525 Balance 1408 875 PT 14.6 SEC (12.0-15.0) 10/19/18 17:50 INR 1.12 (0.83-1.16) 10/19/18 17:50 d/w Dr. Beach and Dr. Courtney CT chest - chest wall hematoma, rib fracture x 6 - Physical Exam Constitutional: no apparent distress, appears nourished, not in pain Cardiovascular: regular rate and rhythym, no murmur, rub, or gallop Respiratory: no respiratory distress, no rales or rhonchi, clear to auscultation Gastrointestinal: normoactive bowel sounds, soft, non-tender abdomen, no palpable masses Skin: no rashes or abrasions, no fluctuance, no induration Neurologic: AAOx3, sensation intact bilaterally Psychiatric: interacting appropriately, not anxious, not encephalopathic, thought process linear ICD10 Worksheet Patient Problems: Problems Problem Status Onset Multiple rib fractures Acute Scapula fracture Acute Clavicle fracture Acute Severe anemia Acute Fall at home Acute IDDM (insulin dependent diabetes mellitus) Acute
[2018-10-21] MEDS: HYDROCODONE/APAP 5/325 TAB PO PRN ×3 (00:06→21:53)
[2018-10-21 06:04] LABS: PLATELET COUNT 177 10^3/uL (150-400)
[2018-10-21] MEDS ORDERED: PROTOCOL POTASSIUM 1 DOSE MISC PRN (07:50)
[2018-10-21] MEDS: INSULIN REGULAR HUMAN 100 UNIT/ML UNIT SC SCH (07:55)
[2018-10-21] MEDS: METOPROLOL TARTRATE 25 MG TAB PO SCH ×2 (08:06→21:53)
[2018-10-21] MEDS: SENNOSIDES/DOCUSATE SODIUM TAB PO SCH ×2 (08:06→21:53)
[2018-10-21] MEDS ORDERED: POTASSIUM CL 10 MEQ TAB PO ONE ×2 (08:50→18:37)
[2018-10-21] MEDS: PHOSPHOROUS PO SCH ×2 (09:14→17:52)
[2018-10-21] MEDS ORDERED: INSULIN PUMP, PATIENT OWN 1 EA MISC SCH (09:15)
--- NOTE | 2018-10-21 12:01 | ASMTCMCOM ---
CM Note CM Note Notes: PT is recommending home care for the patient. Spoke with OT and they think if patient continues to improve he will be ok to go home with home health care. Spoke with patient's and daughter and they feel they will need support at home in providing safety and supporting the patient getting his strength back. The family chose [facility] and CM spoke with [facility] who states they can take the patient and will be able to admit over the weekend since the patient may need today and Thursday in the hospital. Patient will need PT/OT and nursing services to monitor his wound and lungs. Referral has been made. CM will follow. Date Signed: 10/21/2018 12:01 PM Electronically Signed By:Arianna Aguila LCSW
[2018-10-21] MEDS: PSYLLIUM METAMUCIL 1 PKT PO SCH (12:12)
--- NOTE | 2018-10-21 13:12 | PDINTPN ---
[employer] Supervisor Progress Note Assessment/Plan: 83 M s/p mechanical fall 10/02 and evaluated in ED with right clavicular fracture. Appeared stable so dc home for outpatient evl by ortho and placed in sling for non-operative management. Returned 10/19 with increasing weakness, SOB , and BP 105/62; while Hct 25 (not checked on 10/02, but no history of anemia). He was treated with IVF and one unit of RBC, followed by an additional unit . Never needed pressors, but CT revealed large axillary hematoma and multiple right sided rib fractures not evident on CXR. History also includes DM for which he has been very specific about management. * Anemia- presumed blood loss with 14x7 cm hematoma, presumably related to clavicular fracture. H/H stable since in low/mid without hemodynamic compromise. * Clavicular fracture- non-operative management as outlined by outpatient ortho. Continue with PT/OT; ultrams for pain control. 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 Presumably source of chronic hypoxemia which is stable. * DM- he has been very specific about which brand and dosing of his insulin; though BG 250-400; though this AM 134. * Hyponatremia- falling from 131 to 128 despite NS. SIADH? check Osm. Chlorthalidone? * Dispo- OK for floor Subjective: feels well and without complaints Objective: Vital Signs Temp Pulse Resp BP Pulse Ox 36.7 C 77 20 134/112 H 98 10/21/18 07:28 10/21/18 12:00 10/21/18 12:00 10/21/18 12:00 10/21/18 12:00 Laboratory Results 10/21/18 05:24 10/21/18 05:24 10/20/18 10/21/18 10/22/18 05:59 05:59 05:59 Intake Total 1858 2755 Output Total 450 750 Balance 1408 2004 PT 14.6 SEC (12.0-15.0) 10/19/18 17:50 INR 1.12 (0.83-1.16) 10/19/18 17:50 Physical Exam - Physical Exam General Appearance: WD/WN, alert, no apparent distress EENT: PERRL/EOMI Neck: supple Respiratory: lungs clear, normal breath sounds, No respiratory distress, No accessory muscle use, No decreased breath sounds Cardiac/Chest: other (extensive chest wall ecchymosis) Abdomen: non-tender, soft, No distended Skin: warm/dry, No cyanosis, No rash Lymphatic: no adenopathy Extremities: No pedal edema Neuro/Psych: alert, normal mood/affect, oriented x 3 ICD10 Worksheet Patient Problems: Problems Problem Status Onset Clavicle fracture Acute Fall at home Acute IDDM (insulin dependent diabetes mellitus) Acute Multiple rib fractures Acute Scapula fracture Acute Severe anemia Acute
--- NOTE | 2018-10-21 13:32 | SOAPPROG ---
[facility] Progress Note Assessment/Plan: Assessment/plan: 83 y/o M s/p fall 2 weeks ago, readmitted for weakness and pain Found to have: R 1st-6th rib fx. Optimize pain management. Cough, deep breathe, IS. R nondisplaced scapular fx. Nonop. Continue sling. R clavicle fx. Nonop. Continue sling. Anemia secondary to chest wall hematoma. S/p 2uprbc. Serial H&Hs. Hct today down to 23.4. Chest xray today shows stable hemothorax. S: Sitting in chair. C/o pain in R clavicle. No SOB. O: Alert and oriented Afebrile, VSS HEENT: normocephalic, atraumatic, mmm, PERRLA RRR Breath sounds diminished throughout, no increased WOB Abdomen: soft, nontender, nondistended, normoactive BS Musculoskeletal: R arm in sling. 10/21/18 13:26 Objective: Vital Signs Temp Pulse Resp BP Pulse Ox 36.7 C 77 20 134/112 H 98 10/21/18 07:28 10/21/18 12:00 10/21/18 12:00 10/21/18 12:00 10/21/18 12:00 Laboratory Results 10/21/18 05:24 10/21/18 05:24 10/20/18 10/21/18 10/22/18 05:59 05:59 05:59 Intake Total 1858 2755 Output Total 450 750 Balance 1408 2004 PT 14.6 SEC (12.0-15.0) 10/19/18 17:50 INR 1.12 (0.83-1.16) 10/19/18 17:50 ICD10 Worksheet Patient Problems: Problems Problem Status Onset Clavicle fracture Acute Fall at home Acute IDDM (insulin dependent diabetes mellitus) Acute Multiple rib fractures Acute Scapula fracture Acute Severe anemia Acute
[2018-10-21] MEDS: NS 1,000 ML IV SCH (14:48)
--- NOTE | 2018-10-21 15:55 | HOSPPROG ---
Hospitalist Progress Note Assessment/Plan: * DM 1 -back on home insulin pump * Clavicle fracture with chest wall hematoma * Rib fracture x 6 -pulmonary hygiene * Acute blood loss anemia -s/p transfusion -follow H/H * CAD s/p CABG -holding ASA * HTN -Cozaar * Hyponatremia -DC chlorthalidone -check urine sodium Subjective: No new complaints, pain well controlled Objective: Vital Signs Temp Pulse Resp BP Pulse Ox 36.7 C 77 20 134/112 H 98 10/21/18 07:28 10/21/18 12:00 10/21/18 12:00 10/21/18 12:00 10/21/18 12:00 Laboratory Results 10/21/18 05:24 10/21/18 05:24 10/20/18 10/21/18 10/22/18 05:59 05:59 05:59 Intake Total 1858 2755 Output Total 450 750 Balance 1408 2004 PT 14.6 SEC (12.0-15.0) 10/19/18 17:50 INR 1.12 (0.83-1.16) 10/19/18 17:50 cxr - stable d/w dr. segal and dr. stein on ICU/trauma rounds - HH down a little this morning , unclear if still bleeding - Physical Exam Constitutional: no apparent distress, appears nourished, not in pain Cardiovascular: regular rate and rhythym, no murmur, rub, or gallop Respiratory: no respiratory distress, no rales or rhonchi, clear to auscultation Gastrointestinal: normoactive bowel sounds, soft, non-tender abdomen, no palpable masses Skin: other (stable ecchymosis, mature appearing) Neurologic: AAOx3, sensation intact bilaterally Psychiatric: interacting appropriately, not anxious, not encephalopathic, thought process linear ICD10 Worksheet Patient Problems: Problems Problem Status Onset Clavicle fracture Acute Fall at home Acute IDDM (insulin dependent diabetes mellitus) Acute Multiple rib fractures Acute Scapula fracture Acute Severe anemia Acute
[2018-10-21] MEDS: LOSARTAN POTASSIUM 25 MG TAB PO SCH (17:48)
[2018-10-21] MEDS: ATORVASTATIN CALCIUM 20 MG TAB PO SCH (17:48)
--- NOTE | 2018-10-21 19:28 | CPEKG ---
Test Reason : OPEN Blood Pressure : / mmHG Vent. Rate : 074 BPM Atrial Rate : 074 BPM P-R Int : 140 ms QRS Dur : 133 ms QT Int : 396 ms P-R-T Axes : 094 071 013 degrees QTc Int : 440 ms Sinus rhythm Right bundle branch block ST depr, consider ischemia, anterolateral lds Confirmed by Jaycee Cooper ([id number]) on 10/21/2018 7:28:13 PM Referred By: Jaycee Cooper Confirmed By:Jaycee Cooper
--- NOTE | 2018-10-21 19:28 | CPEKG ---
Test Reason : OPEN Blood Pressure : / mmHG Vent. Rate : 078 BPM Atrial Rate : 078 BPM P-R Int : 146 ms QRS Dur : 133 ms QT Int : 399 ms P-R-T Axes : 076 059 -01 degrees QTc Int : 455 ms Sinus rhythm Multiple ventricular premature complexes Right bundle branch block ST depression,kate lateral leads Confirmed by Jaycee Cooper ([id number]) on 10/21/2018 7:27:45 PM Referred By: MAHI BEACH Confirmed By:Jaycee Cooper
--- NOTE | 2018-10-22 | SOAPPROG ---
SOAP Progress Note Assessment/Plan: Assessment: 83 male spfall with rt clavicle and scapular fxs, multiple rib fxs and large chest wall hematoma cxr stable with no hemothorax alert and oriented rt arm in sling has been anemic with 3 units rbcs but hct stable now cooperating with pt and pulmonary toilet na 128 but alert on sliding scale for DM heent nonicteric, cor rr/ chest clear and symmetric with large hematoma and tender ribs abd soft, nontender extrem ok except rt arm restricted 2/2 pain from clavicle, scapular and rib pain Plan:to snf when comfortable and stable/ will need ortho fu for scapular and clav fxs 10/21/18 23:51 Objective: Vital Signs Temp Pulse Resp BP Pulse Ox 36.8 C 65 14 100/52 L 100 10/21/18 19:55 10/21/18 23:42 10/21/18 23:42 10/21/18 23:42 10/21/18 23:42 Laboratory Results 10/21/18 16:00 10/21/18 18:30 10/20/18 10/21/18 10/22/18 05:59 05:59 05:59 Intake Total 1858 2755 1943 Output Total 450 750 400 Balance 1408 2004 1543 PT 14.6 SEC (12.0-15.0) 10/19/18 17:50 INR 1.12 (0.83-1.16) 10/19/18 17:50 ICD10 Worksheet Patient Problems: Problems Problem Status Onset Clavicle fracture Acute Fall at home Acute IDDM (insulin dependent diabetes mellitus) Acute Multiple rib fractures Acute Scapula fracture Acute Severe anemia Acute
[2018-10-22 05:54] LABS: PLATELET COUNT 181 10^3/uL (150-400)
[2018-10-22] MEDS ORDERED: POTASSIUM CL 10 MEQ TAB PO ONE ×2 (07:44→20:37)
[2018-10-22] MEDS: traMADol 50 MG TAB PO PRN ×2 (08:20→20:38)
[2018-10-22] MEDS: METOPROLOL TARTRATE 25 MG TAB PO SCH ×2 (08:20→20:40)
[2018-10-22] MEDS: NS 1,000 ML IV SCH (08:21)
[2018-10-22] MEDS: PHOSPHOROUS PO SCH ×2 (08:30→18:02)
[2018-10-22] MEDS: SENNOSIDES/DOCUSATE SODIUM TAB PO SCH ×2 (09:29→20:39)
--- NOTE | 2018-10-22 11:51 | CPEKG ---
Test Reason : OPEN Blood Pressure : / mmHG Vent. Rate : 069 BPM Atrial Rate : 063 BPM P-R Int : 172 ms QRS Dur : 140 ms QT Int : 428 ms P-R-T Axes : 074 008 -38 degrees QTc Int : 459 ms Sinus rhythm Right bundle branch block Borderline ST depression, lateral leads APCs Confirmed by Barrington Simmons ([id number]) on 10/22/2018 11:50:12 AM Referred By: MAHI BEACH Confirmed By:Barrington Simmons
--- NOTE | 2018-10-22 13:23 | PDINTPN ---
[employer] Progress Note Assessment/Plan: 83 M s/p mechanical fall 10/02 and evaluated in ED with right clavicular fracture. Appeared stable so dc home for outpatient evl by ortho and placed in sling for non-operative management. Returned 10/19 with increasing weakness, SOB , and BP 105/62; while Hct 25 (not checked on 10/02, but no history of anemia). He was treated with IVF and one unit of RBC, followed by an additional unit . Never needed pressors, but CT revealed large axillary hematoma and multiple right sided rib fractures not evident on CXR. History also includes DM for which he has been very specific about management. * Anemia- 10/02 blood loss with 14x7 cm hematoma, presumably related to clavicular fracture. H/H stable since in low/mid without hemodynamic compromise. Last transfusion 10/20. No further transfusio indicated at this time and no ongoing bleeding noted. * Clavicular fracture- non-operative management as outlined by outpatient ortho. Continue with PT/OT; ultram for pain control. 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 Presumably source of chronic hypoxemia which is stable. * DM- he has been very specific about which brand and dosing of his insulin; BG 250-400; though this AM 134. * Hyponatremia- falling from 131 to 128 despite NS. SIADH? check Osm. Chlorthalidone dc'd with slight increase today. UOsm inappropriately concentrated but urine sodium is low, suggesting hypovolemia. Continue to observe off chlorthalidone. * Dispo- OK for floor 10/22/18 13:16 Subjective: pain controlled with Ultram. Denies SOB. No pressors Objective: Vital Signs Temp Pulse Resp BP Pulse Ox 36.6 C 76 22 H 112/57 L 100 10/22/18 11:59 10/22/18 11:59 10/22/18 11:59 10/22/18 11:59 10/22/18 11:59 Laboratory Results 10/22/18 05:32 10/22/18 05:32 10/21/18 10/22/18 10/23/18 05:59 05:59 05:59 Intake Total 275 3231 Output Total 750 700 Balance 2004 2531 PT 14.6 SEC (12.0-15.0) 10/19/18 17:50 INR 1.12 (0.83-1.16) 10/19/18 17:50 Physical Exam - Physical Exam General Appearance: WD/WN, alert, no apparent distress EENT: PERRL/EOMI Neck: supple Respiratory: lungs clear, normal breath sounds, decreased breath sounds, No respiratory distress, No accessory muscle use Cardiac/Chest: regular rate, rhythm, other (ecchymoses), No edema Abdomen: non-tender, soft, No distended Skin: normal color, warm/dry, No cyanosis Lymphatic: no adenopathy Extremities: No pedal edema Neuro/Psych: alert, normal mood/affect, oriented x 3 ICD10 Worksheet Patient Problems: Problems Problem Status Onset Clavicle fracture Acute Fall at home Acute IDDM (insulin dependent diabetes mellitus) Acute Multiple rib fractures Acute Scapula fracture Acute Severe anemia Acute
[2018-10-22] MEDS: PSYLLIUM METAMUCIL 1 PKT PO SCH (14:08)
--- NOTE | 2018-10-22 15:15 | TRAUMAPN ---
Trauma Progress Note Assessment/Plan: Assessment: 83 male spfall with rt clavicle and scapular fxs, multiple rib fxs and large chest wall hematoma No new overnight issues AVSS alert and oriented, up in chair comfortable rt arm in sling heart reg lungs clear chest wall ecchymosis soft abd nontender ext with mild ble edema To snf when comfortable and stable. Will need ortho fu for scapular and clav fxs - cont sling mgmnt for comfort care at this time Objective: Vital Signs Temp Pulse Resp BP Pulse Ox 36.7 C 85 16 103/58 L 93 10/22/18 14:20 10/22/18 14:20 10/22/18 14:20 10/22/18 14:20 10/22/18 14:20 Laboratory Results 10/22/18 05:32 10/22/18 05:32 10/21/18 10/22/18 10/23/18 05:59 05:59 05:59 Intake Total 2755 3231 Output Total 750 700 Balance 2004 2531 PT 14.6 SEC (12.0-15.0) 10/19/18 17:50 INR 1.12 (0.83-1.16) 10/19/18 17:50 - C-Spine Clearance Cervical Spine Cleared: Yes Provider who Cleared Cervical Spine: YONG
--- NOTE | 2018-10-22 15:45 | ASMTCMCOM ---
CM Note CM Note Notes: Per ICU CM, patient has some concerns about discharging home with HHC and is now interested in SNF. CM will follow-up re: SNF options when able. Plan: HHC ([facility]) vs SNF Date Signed: 10/22/2018 03:44 PM Electronically Signed By:Chloe Odell RN
--- NOTE | 2018-10-22 15:58 | HOSPPROG ---
Hospitalist Progress Note Assessment/Plan: * DM 1 -back on home insulin pump * Clavicle fracture with chest wall hematoma -sling -follow-up Dr. Kohler * Rib fracture x 6 -pulmonary hygiene * Acute blood loss anemia -s/p transfusion -H/H - stable * CAD s/p CABG -holding ASA * HTN -Cozaar * Hyponatremia -DC chlorthalidone -follow Subjective: Doing better today, less pain Objective: Vital Signs Temp Pulse Resp BP Pulse Ox 36.7 C 85 16 103/58 L 93 10/22/18 14:20 10/22/18 14:20 10/22/18 14:20 10/22/18 14:20 10/22/18 14:20 Laboratory Results 10/22/18 05:32 10/22/18 05:32 10/21/18 10/22/18 10/23/18 05:59 05:59 05:59 Intake Total 2755 3231 Output Total 750 700 Balance 2004 2531 PT 14.6 SEC (12.0-15.0) 10/19/18 17:50 INR 1.12 (0.83-1.16) 10/19/18 17:50 EKG viewed, my personal interpretation is - Sinus with PAC, RBBB tele - sinus with PAC d/w Dr. stein/frederic on ICU/trauma rounds regarding discharge plan - Physical Exam Constitutional: no apparent distress, appears nourished, not in pain Cardiovascular: regular rate and rhythym, no murmur, rub, or gallop Respiratory: no respiratory distress, no rales or rhonchi, clear to auscultation Gastrointestinal: normoactive bowel sounds, soft, non-tender abdomen, no palpable masses Skin: no rashes or abrasions, no fluctuance, no induration Neurologic: AAOx3, sensation intact bilaterally Psychiatric: interacting appropriately, not anxious, not encephalopathic, thought process linear ICD10 Worksheet Patient Problems: Problems Problem Status Onset Multiple rib fractures Acute Scapula fracture Acute Clavicle fracture Acute Severe anemia Acute Fall at home Acute IDDM (insulin dependent diabetes mellitus) Acute
[2018-10-22] MEDS: ATORVASTATIN CALCIUM 20 MG TAB PO SCH (18:06)
[2018-10-22] MEDS: LOSARTAN POTASSIUM 25 MG TAB PO SCH (18:06)
[2018-10-23 05:33] LABS: PLATELET COUNT 168 10^3/uL (150-400)
[2018-10-23] MEDS: PHOSPHOROUS PO SCH ×2 (08:26→18:22)
[2018-10-23] MEDS: METOPROLOL TARTRATE 25 MG TAB PO SCH ×2 (09:14→20:30)
[2018-10-23] MEDS: traMADol 50 MG TAB PO PRN (09:15)
[2018-10-23] MEDS: SENNOSIDES/DOCUSATE SODIUM TAB PO SCH ×2 (09:15→21:00)
--- NOTE | 2018-10-23 11:28 | TRAUMAPN ---
Trauma Progress Note - Problem/Surgery Performed (1) Fall at home Assessment/Plan: mechanism of injury on 10/02/18 I discussed disposition when he is medically cleared for discharge and he and his anticipate he will be able to go home with [facility] Qualifiers: Encounter type: initial encounter Qualified Code(s): W19.XXXA - Unspecified fall, initial encounter; Y92.009 - Unspecified place in unspecified non-institutional (private) residence as the place of occurrence of the external cause; Y92.009 - Unspecified place in unspecified non-institutional ( private) residence as the place of occurrence of the external cause (2) Clavicle fracture Assessment/Plan: non-operative management recommended by Dr. Todd/continue shoulder immobilization for 3 weeks outpatient Ortho follow up with Dr. Todd Qualifiers: Encounter type: subsequent encounter Clavicle location: unspecified part of clavicle Fracture type: closed Fracture alignment: displaced Laterality : right Fracture healing: with routine healing Qualified Code(s): S42.001D - Fracture of unspecified part of right clavicle, subsequent encounter for fracture with routine healing (3) Multiple rib fractures Assessment/Plan: contributing to chest wall bleeding most likely but without hemopneumothorax Qualifiers: Encounter type: initial encounter Fracture type: closed Laterality: right Qualified Code(s): S22.41XA - Multiple fractures of ribs, right side, initial encounter for closed fracture (4) Scapula fracture Assessment/Plan: contributing to pain, but will not require intervention Qualifiers: Encounter type: initial encounter Scapula location: body Fracture type: closed Fracture alignment: nondisplaced Laterality: right Qualified Code(s ): S42.114A - Nondisplaced fracture of body of scapula, right shoulder, initial encounter for closed fracture (5) Severe anemia Assessment/Plan: blood loss into chest wall as etiology/Hgb 8.6 this morning 3 units of PRBC given (6) IDDM (insulin dependent diabetes mellitus) Assessment/Plan: currently using his Insulin pump, which has now been reprogrammed (7) Hyponatremia Assessment/Plan: Na+ 129 today Assessment/Plan: delayed presentation for sequelae of blood loss anemia due to multiple right sided rib fractures will continue to monitor H/H and start Fe+++ PT/OT/ST consults Home with [facility] next day or two Objective: Vital Signs Temp Pulse Resp BP Pulse Ox 36.8 C 70 16 116/65 99 10/23/18 07:49 10/23/18 07:49 10/23/18 07:49 10/23/18 07:49 10/23/18 07:49 Laboratory Results 10/23/18 05:06 10/23/18 05:06 10/22/18 10/23/18 10/24/18 05:59 05:59 05:59 Intake Total 3231 925 Output Total 700 725 375 Balance 2531 200 -375 PT 14.6 SEC (12.0-15.0) 10/19/18 17:50 INR 1.12 (0.83-1.16) 10/19/18 17:50 - C-Spine Clearance Cervical Spine Cleared: Yes Provider who Cleared Cervical Spine: OYNG Physical Exam - Physical Exam General Appearance: alert, mild distress Neck: non-tender Respiratory: normal breath sounds, decreased breath sounds, splinting, pain on movement Cardiac/Chest: regular rate, rhythm Abdomen: non-tender, soft Male Genitalia: deferred Rectal: deferred Back: Normal inspection Skin: warm/dry Extremities: other (RUE shoulder immobilizer) Neuro/Psych: no motor/sensory deficits, normal mood/affect, oriented x 3 Time Spent w/Patient (minutes): 20
[2018-10-23] MEDS: HYDROCODONE/APAP 5/325 TAB PO PRN ×2 (12:44→21:59)
[2018-10-23] MEDS: FERRO-SEQUELS 65 MG TAB.ER PO SCH (13:08)
[2018-10-23] MEDS: PSYLLIUM METAMUCIL 1 PKT PO SCH (13:25)
--- NOTE | 2018-10-23 14:24 | ASMTCMCOM ---
CM Note CM Note Notes: Met with pt and Hedy to discuss SNF options, they decline information and want to go home with HHC. Today PT rec [facility]/24/hr supervision. D/c plan of care: [facility] PT?OT?RN Date Signed: 10/23/2018 02:23 PM Electronically Signed By:LUL Agosto
--- NOTE | 2018-10-23 16:33 | HOSPPROG ---
Hospitalist Progress Note Assessment/Plan: * DM 1 -back on home insulin pump -BG 100-180 today, continue to monitor * Clavicle fracture with chest wall hematoma -sling -follow-up Dr. Kohler * Rib fracture x 6 -pulmonary hygiene * Acute blood loss anemia -s/p transfusion -H/H - stable * CAD s/p CABG -holding ASA * HTN -Cozaar * Hyponatremia -DC chlorthalidone -Improving slowly, 129 this AM -Continue to follow Dispo: Per primary team, repeat Na within next week as outpatient to ensure continues to improve Subjective: Patient reports no complaints this AM Objective: Vital Signs Temp Pulse Resp BP Pulse Ox 36.3 C 80 18 112/68 95 10/23/18 15:59 10/23/18 15:59 10/23/18 15:59 10/23/18 15:59 10/23/18 15:59 Laboratory Results 10/23/18 05:06 10/23/18 05:06 10/22/18 10/23/18 10/24/18 05:59 05:59 05:59 Intake Total 3231 925 Output Total 700 725 375 Balance 2531 200 -375 PT 14.6 SEC (12.0-15.0) 10/19/18 17:50 INR 1.12 (0.83-1.16) 10/19/18 17:50 - Physical Exam Constitutional: no apparent distress Eyes: PERRL Ears, Nose, Mouth, Throat: moist mucous membranes Cardiovascular: regular rate and rhythym Respiratory: no respiratory distress Gastrointestinal: soft, non-tender abdomen Skin: warm Musculoskeletal: pain with ROM Neurologic: AAOx3 Psychiatric: interacting appropriately ICD10 Worksheet Patient Problems: Problems Problem Status Onset Clavicle fracture Acute Fall at home Acute Hyponatremia Acute IDDM (insulin dependent diabetes mellitus) Acute Multiple rib fractures Acute Scapula fracture Acute Severe anemia Acute
[2018-10-23] MEDS: ATORVASTATIN CALCIUM 20 MG TAB PO SCH (18:25)
[2018-10-23] MEDS: LOSARTAN POTASSIUM 25 MG TAB PO SCH (18:27)
[2018-10-23] MEDS ORDERED: POTASSIUM CL 10 MEQ TAB PO ONE (20:04)
[2018-10-24] MEDS: HYDROCODONE/APAP 5/325 TAB PO PRN ×2 (10:14→20:45)
[2018-10-24] MEDS: SENNOSIDES/DOCUSATE SODIUM TAB PO SCH ×2 (10:15→20:47)
[2018-10-24] MEDS: METOPROLOL TARTRATE 25 MG TAB PO SCH ×2 (10:15→22:38)
[2018-10-24] MEDS: FERRO-SEQUELS 65 MG TAB.ER PO SCH (10:15)
[2018-10-24] MEDS: PHOSPHOROUS PO SCH ×2 (10:44→17:27)
--- NOTE | 2018-10-24 11:44 | SOAPPROG ---
SOAP Progress Note Assessment/Plan: Assessment/Plan: 83 year old male s/p fall at home 10/02/2018 Clavicle fracture (non-op) with chest wall hematoma, sling immobilization for next 3 weeks. F/u with Dr. loera DM 1-back on home insulin pump, BG 100-180 goal for next week at home Rib fracture x 6: pulmonary hygiene Scapula fracture (also non operative) Recommended SNF but patient would prefer dc with [facility] S: Feeling a little painful this morning O: Alert, sitting at bedside. in attendance. NAD No increased WOB normal sensation in fingers of right hand 10/24/18 11:45 10/24/18 11:53 10/24/18 11:54 10/24/18 12:35 Objective: Vital Signs Temp Pulse Resp BP Pulse Ox 36.6 C 71 22 H 118/60 92 10/24/18 08:00 10/24/18 08:00 10/24/18 08:00 10/24/18 08:00 10/24/18 08:00 Laboratory Results 10/23/18 05:06 10/24/18 04:40 10/23/18 10/24/18 10/25/18 05:59 05:59 05:59 Intake Total 925 Output Total 725 375 Balance 200 -375 PT 14.6 SEC (12.0-15.0) 10/19/18 17:50 INR 1.12 (0.83-1.16) 10/19/18 17:50 Physical Exam - Physical Exam General Appearance: WD/WN, alert, no apparent distress EENT: PERRL/EOMI, normal ENT inspection, No scleral icterus (R), No scleral icterus (L), No hearing deficit Neck: non-tender, full range of motion Respiratory: chest non-tender, lungs clear Cardiac/Chest: regular rate, rhythm Back: Normal inspection Skin: warm/dry, other Extremities: other (right arm in sling. sensation intact in hand) ICD10 Worksheet Patient Problems: Problems Problem Status Onset Clavicle fracture Acute Fall at home Acute Hyponatremia Acute IDDM (insulin dependent diabetes mellitus) Acute Multiple rib fractures Acute Scapula fracture Acute Severe anemia Acute
[2018-10-24] MEDS: PSYLLIUM METAMUCIL 1 PKT PO SCH (13:21)
--- NOTE | 2018-10-24 13:36 | HOSPPROG ---
Hospitalist Progress Note Assessment/Plan: * DM 1 -back on home insulin pump -Had hypoglycemic episode yesterday BG 47, then 69, in setting of bolus from pump and not receiving food for 2 hours -Switching diet to Regular per patient so he has more choices -Continue to monitor, if repeat episodes of hypoglycemia will decrease basal rate of pump * Clavicle fracture with chest wall hematoma -sling -follow-up Dr. Kohler * Rib fracture x 6 -pulmonary hygiene * Acute blood loss anemia -s/p transfusion -H/H - stable * CAD s/p CABG -holding ASA, restart per surgery * HTN -Cozaar * Hyponatremia -DC chlorthalidone -Improving slowly, 129 yesterday AM -Continue to follow Dispo: Per primary team, repeat Na within next week as outpatient to ensure continues to improve Objective: Vital Signs Temp Pulse Resp BP Pulse Ox 36.7 C 69 21 H 109/52 L 92 10/24/18 11:59 10/24/18 11:59 10/24/18 11:59 10/24/18 11:59 10/24/18 11:59 Laboratory Results 10/23/18 05:06 10/24/18 04:40 10/23/18 10/24/18 10/25/18 05:59 05:59 05:59 Intake Total 925 Output Total 725 375 Balance 200 -375 PT 14.6 SEC (12.0-15.0) 10/19/18 17:50 INR 1.12 (0.83-1.16) 10/19/18 17:50 ICD10 Worksheet Patient Problems: Problems Problem Status Onset Clavicle fracture Acute Fall at home Acute Hyponatremia Acute IDDM (insulin dependent diabetes mellitus) Acute Multiple rib fractures Acute Scapula fracture Acute Severe anemia Acute
--- NOTE | 2018-10-24 13:56 | ASMTCMCOM ---
CM Note CM Note Notes: Patient is eager to discharge home today, CM discussed case with DIDIER Fink, likely discharge tomorrow.CM to follow. D/C Plan: Home with [facility]. Date Signed: 10/24/2018 01:55 PM Electronically Signed By:Susanna Minaya
[2018-10-24] MEDS: traMADol 50 MG TAB PO PRN (15:01)
[2018-10-24] MEDS: ATORVASTATIN CALCIUM 20 MG TAB PO SCH (17:27)
[2018-10-24] MEDS: LOSARTAN POTASSIUM 25 MG TAB PO SCH (17:27)
[2018-10-24] MEDS ORDERED: POTASSIUM CL 10 MEQ TAB PO ONE (20:10)
[2018-10-25] MEDS: HYDROCODONE/APAP 5/325 TAB PO PRN ×2 (07:54→13:32)
[2018-10-25] MEDS: FERRO-SEQUELS 65 MG TAB.ER PO SCH (07:55)
[2018-10-25] MEDS: SENNOSIDES/DOCUSATE SODIUM TAB PO SCH (07:55)
[2018-10-25] MEDS: METOPROLOL TARTRATE 25 MG TAB PO SCH (07:56)
[2018-10-25] MEDS: PHOSPHOROUS PO SCH (10:15)
[2018-10-25] MEDS: traMADol 50 MG TAB PO PRN (10:15)
--- NOTE | 2018-10-25 10:32 | ASMTCMCOM ---
CM Note CM Note Notes: Met with patient, and dtr to discuss disposition plan. The plan will remain home with [facility], RN/PT/OT. Address/phone # confirmed. CM will follow. Plan: [facility] Date Signed: 10/25/2018 10:32 AM Electronically Signed By:Chloe Odell RN
[2018-10-25] MEDS: PSYLLIUM METAMUCIL 1 PKT PO SCH (13:34)
--- NOTE | 2018-10-25 13:42 | PDDCSUM ---
Discharge Summary Discharge Summary: DISCHARGE SUMMARY Date of Admission October 19 Date of Discharge October 25 DISCHARGE DIAGNOSES -right clavicle fracture Right scapular fracture Multiple right-sided rib fractures HOSPITAL COURSE The patient was admitted from the ED to the trauma service with the above injuries. He had consultation from orthopedics, and was subsequently placed in a sling as both injuries were non operative. Patient progressed well, his pain was subsequently well controlled. He was subsequently sent home in stable condition with home health on the afternoon of the DISCHARGE MEDICATIONS Tramadol and Thayne as needed for pain DISPOSITION Home with home health FOLLOW UP Follow up Dr. Kohler in 2 weeks for follow-up Follow up with the trauma service as needed
--- NOTE | 2018-10-25 13:42 | PDIAF ---
- Diagnosis Diagnosis: clavicle fx, scaupla fx, chest wall hematoma Code Status: Full Code - Medication Management Discharge Medications: electronically signed and located in the Home Medication List. - Orders Services needed: Home Care, Physical Therapy, Occupational Therapy Home Care Face to Face: I certify that this patient was under my care and that I had the required [id number] encounter meeting the encounter requirements on the discharge day. My findings support the fact that the patient is homebound as defined in Home Care Face to Face Continued: CMS Chapter 7 Medicare Benefits Manual 30.1.1 , The condition of the patient is such that there exists a normal inability to leave home and consequently, leaving home would require a considerable and taxing effort. Diet Recommendation: no restrictions on diet Diet Texture: Regular Texture Diet Additional Instructions: [facility] #[phone] or [phone] Continue non-weight bearing to the right arm and keep in the sling. Follow up with Dr Kohler in 2 weeks for re-evaluation prior to starting any activity Avoid strenuous activity for 4 weeks Shower and tub bathe as desired - Follow Up Care Current Providers and Referrals: Patient,NotPresent [Unknown] - follow up in 2 weeks Anjali Kohler MD [Medical Doctor] - (SEE REGARDING ORTHOPEDIC INJURIES AFTER DISCHARGE. USE SLING FOR RUE. ) Tarik Wiggins MD [Medical Doctor] - (trauma surgeon - follow up as needed , no need for formal trauma follow up )
--- NOTE | 2018-10-25 13:54 | ASMTCMCOM ---
CM Note CM Note Notes: Patient will d/c home today with [facility] - Carly at [facility] alerted and will obtain orders via [employer]. Family to transport home. CM available for further needs. Plan: [facility] RN/PT/OT Date Signed: 10/25/2018 01:54 PM Electronically Signed By:Chloe Odell RN
--- NOTE | 2018-10-25 16:10 | HOSPPROG ---
Hospitalist Progress Note Assessment/Plan: * DM 1 -back on home insulin pump -Had hypoglycemic episode on 10/23, in setting of bolus from pump and not receiving food for 2 hours -Switched diet to Regular per patient so he has more choices -Continue to monitor, if repeat episodes of hypoglycemia will decrease basal rate of pump * Clavicle fracture with chest wall hematoma -sling -follow-up Dr. Kohler * Rib fracture x 6 -pulmonary hygiene * Acute blood loss anemia -s/p transfusion -H/H - stable * CAD s/p CABG -holding ASA, restart per surgery * HTN -Cozaar * Hyponatremia -DC chlorthalidone - 128 this AM -Continue to follow as outpatient Dispo: Per primary team, repeat Na within next week as outpatient to ensure continues to improve Subjective: Patient reports no complaints this AM Objective: Vital Signs Temp Pulse Resp BP Pulse Ox 36.6 C 62 19 104/50 L 94 10/25/18 11:52 10/25/18 11:52 10/25/18 11:52 10/25/18 11:52 10/25/18 11:52 Laboratory Results 10/25/18 08:47 10/25/18 04:50 10/24/18 10/25/18 10/26/18 05:59 05:59 05:59 Intake Total 1580 480 Output Total 375 425 Balance -375 1155 480 PT 14.6 SEC (12.0-15.0) 10/19/18 17:50 INR 1.12 (0.83-1.16) 10/19/18 17:50 - Physical Exam Constitutional: no apparent distress Eyes: PERRL Ears, Nose, Mouth, Throat: moist mucous membranes Cardiovascular: regular rate and rhythym Respiratory: no respiratory distress Gastrointestinal: soft, non-tender abdomen Genitourinary: no bladder fullness Skin: warm Musculoskeletal: full muscle strength Neurologic: AAOx3 Psychiatric: interacting appropriately ICD10 Worksheet Patient Problems: Problems Problem Status Onset Clavicle fracture Acute Fall at home Acute Hyponatremia Acute IDDM (insulin dependent diabetes mellitus) Acute Multiple rib fractures Acute Scapula fracture Acute Severe anemia Acute
[2018-10-25 16:32] VITALS: BP 106/55
--- NOTE | 2018-10-26 08:24 | ASDISCHSUM ---
Discharge Information Plan Status:Home with Home Health Medically Cleared to Leave: Discharge Date:10/25/2018 05:21 PM CM D/C Disposition:Home Health Service ADT D/C Disposition:Home Health Service Projected Discharge Date:10/23/2018 11:00 AM Transportation at D/C:Family Discharge Delay Reason: Follow-Up Date:10/23/2018 11:00 AM Discharge Slot: Final Diagnosis: Placement Information Referral Type:*Home Health Care Services Referral ID:[id number] Provider Name:[facility] Address 1:[address] Address 2: City:[place] Selection Factors: State:[place] Patient Contact Information Contact Name:ZORAN Relationship: [address] [facility] Work Phone: City:[place] Alternate Phone: State/Zip Code:[place] [address] Email: Financial Information Financial Class:Medicare Primary Plan Desc:MEDICARE INPATIENT Primary Plan Number:[id number] Secondary Plan Desc:[facility] Secondary Plan Number:[id number] Assessment Information [facility] Initial CM Assessment Living Arrangements What is your living Answers: With Spouse arrangement? Who do you live with? Type Of Residence What kind of residence do Answers: House you live in? Discharge Plan Comments Coordination Status Comments Notes: Patient is an 83yo male who fell at home on 10-02-2018 and was seen in the ED and released with a right clavicle fracture. Patient was found to have a large chest wall hematoma and 1st-6th rib fractures and a non-displaced scapular body fracture. PT/OT/Inpatient rehab evals have been ordered. D/C plan TBD. CM will follow. Date Signed: 10/20/2018 01:29 PM Electronically Signed By:Arianna Aguila LCSW [facility] CM Progress Note CM Note CM Note Notes: PT is recommending home care for the patient. Spoke with OT and they think if patient continues to improve he will be ok to go home with home health care. Spoke with patient's and daughter and they feel they will need support at home in providing safety and supporting the patient getting his strength back. The family chose [facility] and CM spoke with [facility] who states they can take the patient and will be able to admit over the weekend since the patient may need today and Thursday in the hospital. Patient will need PT/OT and nursing services to monitor his wound and lungs. Referral has been made. CM will follow. Date Signed: 10/21/2018 12:01 PM Electronically Signed By:Arianna Aguila LCSW [facility] CM Progress Note CM Note CM Note Notes: Per ICU CM, patient has some concerns about discharging home with [facility] and is now interested in SNF. CM will follow-up re: SNF options when able. Plan: C ([facility]) vs SNF Date Signed: 10/22/2018 03:44 PM Electronically Signed By:Chloe Odell RN [facility] CM Progress Note CM Note CM Note Notes: Met with pt and Hedy to discuss SNF options, they decline information and want to go home with [facility]. Today PT rec [facility]/24/hr supervision. D/c plan of care: [facility] PT?OT?RN Date Signed: 10/23/2018 02:23 PM Electronically Signed By:LUL Agosto [facility] CM Progress Note CM Note CM Note Notes: Patient is eager to discharge home today, CM discussed case with DIDIER Fink, likely discharge tomorrow.CM to follow. D/C Plan: Home with [facility]. Date Signed: 10/24/2018 01:55 PM Electronically Signed By:Susanna Minaya [facility] CM Progress Note CM Note CM Note Notes: Met with patient, and dtr to discuss disposition plan. The plan will remain home with DIDIER PURDY/PT/OT. Address/phone # confirmed. CM will follow. Plan: [facility] Date Signed: 10/25/2018 10:32 AM Electronically Signed By:Chloe Odell RN [facility] CM Progress Note CM Note CM Note Notes: Patient will d/c home today with [facility] - Carly at [facility] alerted and will obtain orders via [employer]. Family to transport home. CM available for further needs. Plan: [facility] RN/PT/OT Date Signed: 10/25/2018 01:54 PM Electronically Signed By:Chloe Odell RN Intervention Information Intervention Type:*IM-Signed Date of Service:10/25/2018 02:53 PM Patient Type:Inpatient Staff Member:Rosa M Sheridan Hours: Discipline: Severity: Comment:
== END 2018-10-25 17:21 | disposition home health service (06) | DRG 184 ==
LOC: EDUNIT# → F2N 22:40 → F3N 10-22 14:13
PROVIDERS: ADMIT Surgery; ATTEND Surgery
PROC: 30233N1 Transfusion of Nonautologous Red Blood Cells into Peripheral Vein, Percutaneous Approach (ICD-10-PCS; principal; 2018-10-19)
DX: S22.41XA Multiple fractures of ribs, right side, initial encounter for closed fracture (principal); S20.219A Contusion of unspecified front wall of thorax, initial encounter; S42.101A Fracture of unspecified part of scapula, right shoulder, initial encounter for closed fracture; S42.001A Fracture of unspecified part of right clavicle, initial encounter for closed fracture; W06.XXXA Fall from bed, initial encounter; Y92.013 Bedroom of single-family (private) house as the place of occurrence of the external cause; E87.0 Hyperosmolality and hypernatremia; E10.9 Type 1 diabetes mellitus without complications; I25.10 Atherosclerotic heart disease of native coronary artery without angina pectoris; N40.0 Benign prostatic hyperplasia without lower urinary tract symptoms; M81.0 Age-related osteoporosis without current pathological fracture; I10 Essential (primary) hypertension; Z96.41 Presence of insulin pump (external) (internal); Z95.5 Presence of coronary angioplasty implant and graft; Z95.1 Presence of aortocoronary bypass graft; Z79.82 Long term (current) use of aspirin
CPT/HCPCS: 82435-PO; 82565-PO; 82947-PO; 82947-QW; 84132-PO; 84295-PO; 84484-ER; 84520-PO; 85014-ER; 92523-GN; 96365; 97116-GP; 97162-GP; 97166-GO; 97530-GO; 97530-GP; 97535-GO; J1815; J2270; J3480; P9016; Q9967

== ENCOUNTER 2018-11-02 21:00 | Observation (INO) | payer BC, OTHER ==
--- NOTE | 2018-11-02 21:35 | EDPHY ---
H & P Stated Complaint: ELEV BLOOD SUGAR - Personal History Current Tetanus Diphtheria and Acellular Pertussis (TDAP): Unsure Tetanus Vaccine Date: 2006 - Medical/Surgical History Hx Asthma: No Hx Chronic Respiratory Disease: No Hx Diabetes: Yes Hx Cardiac Disease: Yes Hx Renal Disease: No Hx Cirrhosis: No Hx Alcoholism: No Hx HIV/AIDS: No Hx Splenectomy or Spleen Trauma: No Other PMH: OPEN HEART SURF/DIABETES - Social History Smoking Status: Never smoked Time Seen by Provider: 11/02/18 21:09 HPI/ROS: CHIEF COMPLAINT: Hyperglycemia HISTORY OF PRESENT ILLNESS: 83-year-old male with insulin-dependent diabetes presents with hyperglycemia. He is on an insulin pump at 6 units/hour. This afternoon, blood sugar was 490. He called Dr. Cruz, and gave himself an extra bolus of insulin 5 units. Hyperglycemia persisted this evening, at 560. Insulin 5 unit bolus repeated without change in blood sugar. He has used an insulin pump for over 20 years. He was admitted in October 2018 after a fall with multiple rib fractures, clavicle fracture and scapular fracture. He received a blood transfusion for severe anemia related to the injuries. He has been healing well and is not home with his . Pain is managed with [place] as needed. No pain currently. REVIEW OF SYSTEMS: complete 10 point ROS reviewed and is negative except for the noted elements in the HPI (Jaycee Cooper) - Physical Exam Exam: General Appearance: Alert, pleasant Eyes: Pupils equal and round, no conjunctival pallor ENT, Mouth: Mucous membranes moist Neck: Normal inspection Respiratory: Lungs are clear to auscultation Cardiovascular: Regular rate and rhythm Gastrointestinal: Abdomen is soft and nontender, insulin pump tubing is not connected to site Back: ecchymosis right flank Neurological: A&O, nonfocal, normal gait Skin: Warm and dry Extremities: Normal inspection Psychiatric: Mood and affect normal (Jaycee Cooper) Constitutional: Initial Vital Signs Temperature (C) 36.6 C 11/02/18 21:18 Heart Rate 78 11/02/18 21:18 Respiratory Rate 16 11/02/18 21:18 Blood Pressure 105/53 L 11/02/18 21:18 O2 Sat (%) 90 L 11/02/18 21:18 O2 Delivery Mode Room Air Allergies/Adverse Reactions: No Known Allergies Allergy (Verified 10/19/18 18:47) Home Medications: Medication Instructions Recorded Chlorthalidone [Chlorthalidone 25 50 mg PO DAILY 10/19/18 mg (*)] Herbals/Supplements -Info Only 1 ea PO DAILY 10/19/18 Insulin Pump, Patient Own 1 ea MISC AD 10/19/18 Losartan Potassium [Cozaar 25 mg 25 mg PO DAILY18 10/19/18 (*)] Metoprolol Tartrate [Lopressor 25 12.5 mg PO BIDMEAL 10/19/18 mg (*)] Simvastatin [Zocor] 40 mg PO DAILY18 10/19/18 Ecotrin 11/02/18 Medical Decision Making - Diagnostics EKG Interpretation: EKG interpreted by me reveals normal sinus rhythm, rate 81, right bundle branch block. Interpretation: Abnormal EKG (Jaycee Cooper) Imaging Results: Imaging Impressions Chest X-Ray 11/02/18 21:30 Impression: 1. No pneumothorax. 2. Moderate cardiomegaly with median sternotomy wires 3. Chronically elevated left hemidiaphragm. 4. Multiple subacute right rib fractures, subacute displaced right clavicle fracture, and subacute right scapula fracture. ED Course/Re-evaluation: The reason for the hyperglycemia is that his insulin pump was accidentally disconnected. It was reconnected and the patient was given a bolus of 9 units of insulin. He then was restarted on his usual insulin dosing at 6 units/hour. (Jaycee Cooper) Other Provider: [address] Cooper pending improvement in the patient's blood sugar. Patient presenting with hyperglycemia. It was noted that his insulin pump quick connector was disconnected from his site. This was replaced. We have given him a correction of 9 units at his recommendation. Plan will be to repeat his blood sugar to make sure he is improving. Patient is currently not acidotic. Blood sugar originally in the 600s. Repeat blood sugar in the 500s. Plan will be to recheck in 30 min. Patient is now 90 min from his correction bolus. Blood sugar now is 477. Will recheck and 30 min. 0045 Patient has changed his site. Blood sugar now 490s. Will give a repeat correction of 8 units now. Plan recheck in 1 hr. 0145 BS now 398 0220 BS now 371 given the to correction that he has had and the relatively slow drop in his blood sugar plan will be to admit for further care. The patient has not been acidotic. Blood sugar is responding appropriately. I have paged the hospitalist. (Barry López) - Data Points Laboratory Results: Laboratory Results 11/02/18 21:40 11/02/18 21:40 11/03/18 11/03/18 11/03/18 02:21 01:46 00:32 WBC RBC Hgb Hct MCV MCH MCHC RDW Plt Count MPV Neut % (Auto) Lymph % (Auto) [place] % (Auto) Eos % (Auto) Baso % (Auto) Nucleat RBC Rel Count Absolute Neuts (auto) Absolute Lymphs (auto) Absolute Monos (auto) Absolute Eos (auto) Absolute Basos (auto) Absolute Nucleated RBC Immature Gran % Immature Gran # RBC/WBC/PLT Morphology Platelet Estimate Sodium Potassium Chloride Carbon Dioxide Anion Gap BUN Creatinine Estimated GFR Glucose POC Glucose 371 mg/dL H mg/dL 398 mg/dL H mg/dL 492 mg/dL H mg/dL (70-100) (70-100) (70-100) Calcium Urine Color Urine Appearance Urine pH Ur Specific [place] Urine Protein Urine Ketones Urine Blood Urine Nitrate Urine Bilirubin Urine Urobilinogen Ur Leukocyte Esterase Urine RBC Urine WBC Ur Epithelial Cells Hyaline Casts Urine Mucus Urine Glucose 11/02/18 11/02/18 11/02/18 23:53 23:17 22:24 WBC RBC Hgb Hct MCV MCH MCHC RDW Plt Count MPV Neut % (Auto) Lymph % (Auto) [place] % (Auto) Eos % (Auto) Baso % (Auto) Nucleat RBC Rel Count Absolute Neuts (auto) Absolute Lymphs (auto) Absolute Monos (auto) Absolute Eos (auto) Absolute Basos (auto) Absolute Nucleated RBC Immature Gran % Immature Gran # RBC/WBC/PLT Morphology Platelet Estimate Sodium Potassium Chloride Carbon Dioxide Anion Gap BUN Creatinine Estimated GFR Glucose POC Glucose 477 mg/dL H mg/dL 526 mg/dL H* mg/dL (70-100) (70-100) Calcium Urine Color YELLOW Urine Appearance CLEAR Urine pH 5.0 (5.0-7.5) Ur Specific [place] 1.016 (1.002-1.030) Urine Protein NEGATIVE (NEGATIVE) Urine Ketones TRACE H (NEGATIVE) Urine Blood 1+ H (NEGATIVE) Urine Nitrate NEGATIVE (NEGATIVE) Urine Bilirubin NEGATIVE (NEGATIVE) Urine Urobilinogen NEGATIVE EU EU (0.2-1.0) Ur Leukocyte Esterase NEGATIVE (NEGATIVE) Urine RBC 1-3 /hpf /hpf (0-3) Urine WBC 1-3 /hpf /hpf (0-3) Ur Epithelial Cells TRACE /lpf /lpf (NONE-1+) Hyaline Casts 1-5 /lpf /lpf (0-1) Urine Mucus TRACE /lpf /lpf (NONE-1+) Urine Glucose 3+ H (NEGATIVE) 11/02/18 11/02/18 11/02/18 21:40 21:40 21:19 WBC 7.26 10^3/uL 10^3/uL (3.80-9.50) RBC 3.27 10^6/uL L 10^6/uL (4.40-6.38) Hgb 11.0 g/dL L g/dL (13.7-17.5) Hct 34.3 % L % (40.0-51.0) MCV 104.9 fL H fL (81.5-99.8) MCH 33.6 pg pg (27.9-34.1) MCHC 32.1 g/dL L g/dL (32.4-36.7) RDW 16.5 % H % (11.5-15.2) Plt Count 248 10^3/uL 10^3/uL (150-400) MPV 9.2 fL fL (8.7-11.7) Neut % (Auto) 89.3 % H % (39.3-74.2) Lymph % (Auto) 2.5 % L % (15.0-45.0) Mccreary % (Auto) 7.7 % % (4.5-13.0) Eos % (Auto) 0.0 % L % (0.6-7.6) Baso % (Auto) 0.1 % L % (0.3-1.7) Nucleat RBC Rel Count 0.0 % % (0.0-0.2) Absolute Neuts (auto) 6.48 10^3/uL 10^3/uL (1.70-6.50) Absolute Lymphs (auto) 0.18 10^3/uL L 10^3/uL (1.00-3.00) Absolute Monos (auto) 0.56 10^3/uL 10^3/uL (0.30-0.80) Absolute Eos (auto) 0.00 10^3/uL L 10^3/uL (0.03-0.40) Absolute Basos (auto) 0.01 10^3/uL L 10^3/uL (0.02-0.10) Absolute Nucleated RBC 0.00 10^3/uL 10^3/uL (0-0.01) Immature Gran % 0.4 % % (0.0-1.1) Immature Gran # 0.03 10^3/uL 10^3/uL (0.00-0.10) RBC/WBC/PLT Morphology TNP Platelet Estimate TNP Sodium 124 mEq/L L mEq/L (135-145) Potassium 4.6 mEq/L mEq/L (3.5-5.2) Chloride 86 mEq/L L mEq/L (97-110) Carbon Dioxide 23 mEq/l mEq/l (22-31) Anion Gap 15 mEq/L H mEq/L (6-14) BUN 38 mg/dL H mg/dL (7-23) Creatinine 1.3 mg/dL mg/dL (0.7-1.3) Estimated GFR 53 Glucose 607 mg/dL H* mg/dL (70-100) POC Glucose 560 mg/dL H* mg/dL (70-100) Calcium 8.9 mg/dL mg/dL (8.5-10.4) Urine Color Urine Appearance Urine pH Ur Specific [place] Urine Protein Urine Ketones Urine Blood Urine Nitrate Urine Bilirubin Urine Urobilinogen Ur Leukocyte Esterase Urine RBC Urine WBC Ur Epithelial Cells Hyaline Casts Urine Mucus Urine Glucose Medications Given: Discontinued Medications Sodium Chloride (Ns) 500 mls @ 1,000 mls/hr IV EDNOW ONE PRN Reason: Protocol Stop: 11/02/18 22:53 Last Admin: 11/02/18 22:36 Dose: 500 mls Sodium Chloride (Ns) 1,000 mls @ 0 mls/hr IV EDNOW ONE; Wide Open PRN Reason: Protocol Stop: 11/03/18 02:32 Last Admin: 11/03/18 02:32 Dose: 1,000 mls Insulin Human Regular (Humulin R) 8 unit IVP EDNOW ONE Stop: 11/02/18 21:37 Last Admin: 11/02/18 22:11 Dose: Not Given Point of Care Test Results: Chemistry 11/03/18 11/03/18 11/03/18 02:21 01:46 00:32 POC Glucose 371 mg/dL H mg/dL 398 mg/dL H mg/dL 492 mg/dL H mg/dL (70-100) (70-100) (70-100) 11/02/18 11/02/18 11/02/18 23:53 23:17 21:19 POC Glucose 477 mg/dL H mg/dL 526 mg/dL H* mg/dL 560 mg/dL H* mg/dL (70-100) (70-100) (70-100) Departure - Departure Disposition: [facility] Inpatient Acute Clinical Impression: Hyperglycemia due to type 1 diabetes mellitus Displacement of insulin pump Qualifiers: Encounter type: initial encounter Qualified Code(s): T85.624A - Displacement of insulin pump, initial encounter Condition: Fair Instructions: Diabetic Hyperglycemia (ED) Referrals: Marylin Hyde MD [Primary Care Provider] - As per Instructions
[2018-11-02] MEDS ORDERED: INSULIN REGULAR HUMAN 100 UNIT/ML UNIT IVP ONE (21:36)
[2018-11-02 21:54] LABS: PLATELET COUNT 248 10^3/uL (150-400)
[2018-11-02] MEDS ORDERED: NS 500 ML IV ONE (22:24)
--- NOTE | 2018-11-02 22:40 | CPEKG ---
Test Reason : OPEN Blood Pressure : / mmHG Vent. Rate : 081 BPM Atrial Rate : 081 BPM P-R Int : 182 ms QRS Dur : 143 ms QT Int : 412 ms P-R-T Axes : 060 020 -08 degrees QTc Int : 479 ms Sinus rhythm Right bundle branch block Confirmed by Jaycee Miller ([id number]) on 11/02/2018 10:39:58 PM Referred By: JAYCEE MILLER Confirmed By:Jaycee Miller
[2018-11-03] MEDS ORDERED: NS 1,000 ML IV ONE ×2 (02:31→02:37)
[2018-11-03] MEDS ORDERED: ONDANSETRON 4 MG/2 ML VIAL IVP PRN (02:36)
[2018-11-03] MEDS ORDERED: ACETAMINOPHEN 325 MG TAB PO PRN (02:36)
[2018-11-03] MEDS ORDERED: ONDANSETRON DISINTEGRATING 4 MG TAB PO PRN (02:36)
[2018-11-03] MEDS ORDERED: D50W 25 GM/50 ML VIAL IVP PRN (02:38)
[2018-11-03 04:27] LABS: PLATELET COUNT 243 10^3/uL (150-400)
[2018-11-03] MEDS: ENOXAPARIN 40 MG/0.4 ML SYR SC SCH (08:34)
[2018-11-03] MEDS ORDERED: D50W 25 GM/50 ML SYR IVP PRN (08:42)
[2018-11-03] MEDS ORDERED: INSULIN PUMP, PATIENT OWN 1 EA MISC SCH (08:45)
[2018-11-03] MEDS ORDERED: NON-FORMULARY NEW DRUG (Insulin Pump, Patient Own 1 EA) MISC SCH (08:45)
--- NOTE | 2018-11-03 15:15 | ASMTCMCOM ---
CM Note CM Note Notes: 11/03/2018 Case Management Note Discussed pt during rounds this morning. Pt admitted for hyperglycemia. Met w/pt and Hedy [phone]. 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 Pt is new to Dr. Cruz,used to see Dr. Navarro, and has not been seen yet by Dr. Cruz. Pt uses medtronic 630 pump. Pt is open with [facility] RN PT OT. Notified [facility] of admission. Faxed updates via [employer]. Pt PCP is Dr. Marylin Hyde Case Management d/c poc: resume [facility] RN PT OT Case Management to follow. Date Signed: 11/03/2018 03:14 PM Electronically Signed By:Chrissie Shelley RN
--- NOTE | 2018-11-03 15:37 | PDGENHP ---
History and Physical - Chief Complaint Hyperglycemia, malaise - History of Present Illness This is 83-year-old male with insulin-dependent diabetes presents with hyperglycemia. His insulin pump was disconnected and he had hyperglycemia. He was given insulin in the ER and the pump was reconnected but the hyperglycemia persisted. He has a hx of HTN but bp is soft despite not taking any meds. He has been afebrile. He received IVF in the ER. afebrile, denies cp or sob. reports some pedal edema,denies hx of CHF. PMHx: HTN, IDDM, Pedal edema, Hyponatremia, Soc: FmHx: non contributory History Information - Allergies/Home Medication List Allergies/Adverse Reactions: No Known Allergies Allergy (Verified 10/19/18 18:47) Home Medications: Chlorthalidone [Chlorthalidone 25 mg (*)] 50 mg PO DAILY 10/19/18 [Last Taken ] Herbals/Supplements -Info Only 1 ea PO DAILY 10/19/18 [Last Taken Unknown] Insulin Pump, Patient Own 1 ea MISC AD 10/19/18 [Last Taken 10/19/18] Losartan Potassium [Cozaar 25 mg (*)] 25 mg PO DAILY18 10/19/18 [Last Taken 01/16] Metoprolol Tartrate [Lopressor 25 mg (*)] 12.5 mg PO BIDMEAL 10/19/18 [Last Taken 11/02/18 09:00] Simvastatin [Zocor] 40 mg PO DAILY18 10/19/18 [Last Taken 11/01/18] Aspirin EC [Aspirin EC 325 mg (*)] 325 mg PO DAILY 11/03/18 [Last Taken 11/02/18 ] Furosemide [Lasix 20 MG (*)] 20 mg PO DAILY 11/03/18 [Last Taken 11/02/18] Phospha 250mg Tab 250 mg PO BIDMEAL 11/03/18 [Last Taken 11/02/18 09:00] Potassium Cl [Klor-Con] 10 meq PO DAILY 11/03/18 [Last Taken 11/02/18] Psyllium Husk (with Sugar) [Metamucil Packet] 1 each PO DAILY@1200 11/03/18 [ Last Taken 11/01/18] I have personally reviewed and updated: medical history, social history - Past Medical History coronary artery disease, diabetes type 1 - Surgical History Reports: coronary bypass surgery, hernia repair - Family History Positive for: non-pertinent - Social History Smoking Status: Never smoked Additional social history: PCP Dr. Marylin Hyde Review of Systems Review of Systems: ROS: 10pt was reviewed & negative except for what was stated in HPI & below Physical Exam Physical Exam: Temp Pulse Resp BP Pulse Ox 36.6 C 74 18 99/52 L 90 L 11/03/18 07:16 11/03/18 11:38 11/03/18 07:16 11/03/18 11:38 11/03/18 11:38 O2 (L/minute) 1 Constitutional: chronically ill appearing Eyes: PERRL, EOMI Ears, Nose, Mouth, Throat: moist mucous membranes Cardiovascular: regular rate and rhythym, edema (trace LE) Respiratory: no respiratory distress, no rales or rhonchi, clear to auscultation Gastrointestinal: normoactive bowel sounds, soft, non-tender abdomen Skin: warm Neurologic: AAOx3 Psychiatric: interacting appropriately, not anxious, not encephalopathic Lymph, Heme, Immunologic: No petechiae Lab Data & Imaging Review 11/03/18 03:52 11/03/18 03:52 WBC 10.25 10^3/uL (3.80-9.50) H 11/03/18 03:52 RBC 3.22 10^6/uL (4.40-6.38) L 11/03/18 03:52 Hgb 10.7 g/dL (13.7-17.5) L 11/03/18 03:52 Hct 33.2 % (40.0-51.0) L 11/03/18 03:52 MCV 103.1 fL (81.5-99.8) H 11/03/18 03:52 MCH 33.2 pg (27.9-34.1) 11/03/18 03:52 MCHC 32.2 g/dL (32.4-36.7) L 11/03/18 03:52 RDW 16.6 % (11.5-15.2) H 11/03/18 03:52 Plt Count 243 10^3/uL (150-400) 11/03/18 03:52 MPV 9.5 fL (8.7-11.7) 11/03/18 03:52 Neut % (Auto) 78.5 % (39.3-74.2) H 11/03/18 03:52 Lymph % (Auto) 5.2 % (15.0-45.0) L 11/03/18 03:52 [place] % (Auto) 15.8 % (4.5-13.0) H 11/03/18 03:52 Eos % (Auto) 0.1 % (0.6-7.6) L 11/03/18 03:52 Baso % (Auto) 0.1 % (0.3-1.7) L 11/03/18 03:52 Nucleat RBC Rel Count 0.0 % (0.0-0.2) 11/03/18 03:52 Absolute Neuts (auto) 8.05 10^3/uL (1.70-6.50) H 11/03/18 03:52 Absolute Lymphs (auto) 0.53 10^3/uL (1.00-3.00) L 11/03/18 03:52 Absolute Monos (auto) 1.62 10^3/uL (0.30-0.80) H 11/03/18 03:52 Absolute Eos (auto) 0.01 10^3/uL (0.03-0.40) L 11/03/18 03:52 Absolute Basos (auto) 0.01 10^3/uL (0.02-0.10) L 11/03/18 03:52 Absolute Nucleated RBC 0.00 10^3/uL (0-0.01) 11/03/18 03:52 Immature Gran % 0.3 % (0.0-1.1) 11/03/18 03:52 Immature Gran # 0.03 10^3/uL (0.00-0.10) 11/03/18 03:52 RBC/WBC/PLT Morphology TNP 11/03/18 03:52 Platelet Estimate TNP 11/03/18 03:52 Sodium 130 mEq/L (135-145) L 11/03/18 03:52 Potassium 3.8 mEq/L (3.5-5.2) 11/03/18 03:52 Chloride 94 mEq/L (97-110) L 11/03/18 03:52 Carbon Dioxide 22 mEq/l (22-31) 11/03/18 03:52 Anion Gap 14 mEq/L (6-14) 11/03/18 03:52 BUN 37 mg/dL (7-23) H 11/03/18 03:52 Creatinine 1.1 mg/dL (0.7-1.3) 11/03/18 03:52 Estimated GFR > 60 11/03/18 03:52 Glucose 309 mg/dL (70-100) H 11/03/18 03:52 POC Glucose 149 mg/dL (70-100) H 11/03/18 11:37 Hemoglobin A1c 5.1 % (4.0-6.0) 11/03/18 03:52 Estim Average Glucose 100 mg/dL (68-126) 11/03/18 03:52 Calcium 8.7 mg/dL (8.5-10.4) 11/03/18 03:52 Magnesium 2.0 mg/dL (1.6-2.3) 11/03/18 03:52 Urine Color YELLOW 11/02/18 22:24 Urine Appearance CLEAR 11/02/18 22:24 Urine pH 5.0 (5.0-7.5) 11/02/18 22:24 Ur Specific [place] 1.016 (1.002-1.030) 11/02/18 22:24 Urine Protein NEGATIVE (NEGATIVE) 11/02/18 22:24 Urine Ketones TRACE (NEGATIVE) H 11/02/18 22:24 Urine Blood 1+ (NEGATIVE) H 11/02/18 22:24 Urine Nitrate NEGATIVE (NEGATIVE) 11/02/18 22:24 Urine Bilirubin NEGATIVE (NEGATIVE) 11/02/18 22:24 Urine Urobilinogen NEGATIVE EU (0.2-1.0) 11/02/18 22:24 Ur Leukocyte Esterase NEGATIVE (NEGATIVE) 11/02/18 22:24 Urine RBC 1-3 /hpf (0-3) 11/02/18 22:24 Urine WBC 1-3 /hpf (0-3) 11/02/18 22:24 Ur Epithelial Cells TRACE /lpf (NONE-1+) 11/02/18 22:24 Hyaline Casts 1-5 /lpf (0-1) 11/02/18 22:24 Urine Mucus TRACE /lpf (NONE-1+) 11/02/18 22:24 Urine Glucose 3+ (NEGATIVE) H 11/02/18 22:24 Assessment & Plan Assessment: #Displacement of insulin pump (Acute) #Hyperglycemia due to type 1 diabetes mellitus (Acute) #Dehydration, on presentation to the ER, received IVF, appears improving #Hyponatremia, likely chronic #Soft BP in setting of HTN. On 4 meds at home, will need modification #Leukocytosis, possible reactive Plan: observation hold BP meds today Glucose management is now improving, insulin pump is working Hold additional IVF for now Hold BP meds: Chlorthalidone, Losartan, Lasix. Cont BB Lovenox for DVT proph PT/OT eval
[2018-11-03] MEDS: HYDROCODONE/APAP 5/325 TAB PO PRN ×2 (16:17→21:49)
[2018-11-03] MEDS ORDERED: ATORVASTATIN CALCIUM 20 MG TAB PO SCH (18:00)
[2018-11-03] MEDS: PSYLLIUM METAMUCIL 1 PKT PO SCH (18:05)
[2018-11-04 05:46] LABS: PLATELET COUNT 188 10^3/uL (150-400)
[2018-11-04] MEDS: HYDROCODONE/APAP 5/325 TAB PO PRN ×2 (07:55→15:34)
[2018-11-04] MEDS: ENOXAPARIN 40 MG/0.4 ML SYR SC SCH (07:56)
[2018-11-04] MEDS ORDERED: ASPIRIN EC 325 MG TAB PO SCH (09:00)
[2018-11-04] MEDS ORDERED: METOPROLOL TARTRATE 25 MG TAB PO SCH (09:00)
[2018-11-04 11:49] VITALS: BP 107/60
--- NOTE | 2018-11-04 14:40 | PDDCSUM ---
Discharge Summary Discharge Summary: HPI/HOSPITAL COURSE: This is a 83 yo male with hx of DM 1 who uses an insulin pump who presented with malaise due to pump malfunction. He was noted to have dehydration with hyperglycemia. He was admitted. he was started on IVF. Pump was fixed and is working accurately. He has a hx of HTN and is on 4 agents and he was noted to be hypotensive. Metoprolol was continued and Lasix, Chlorthalidone, and Losartan were discontinued. He is euvolemic on discharge. he will f/u with his pcp next week and can discuss if additional bp meds are needed DDX: #Displacement of insulin pump (Acute) #Hyperglycemia due to type 1 diabetes mellitus (Acute) #Dehydration, on presentation to the ER, received IVF, appears improving #Hyponatremia, likely chronic #Soft BP in setting of HTN. On 4 meds at home, will need modification #Leukocytosis, possible reactive Exam: NAD AAOX3 RRR CTA B S/NT/ND MEDS: SEE MED REC TOTAL TIME SPENT ON D/C IS 35 MINS
[2018-11-04] MEDS: PSYLLIUM METAMUCIL 1 PKT PO SCH (15:36)
--- NOTE | 2018-11-04 15:41 | ASDISCHSUM ---
Discharge Information Plan Status:Home with Home Health Medically Cleared to Leave: Discharge Date:11/04/2018 03:37 PM CM D/C Disposition: ADT D/C Disposition:Home, Routine, Self-Care Projected Discharge Date:11/04/2018 11:00 AM Transportation at D/C: Discharge Delay Reason: Follow-Up Date:11/04/2018 11:00 AM Discharge Slot: Final Diagnosis: Placement Information Referral Type:*Home Health Care Services Referral ID:[id number] Provider Name:[facility] Address 1:[address] Address 2: City:[place] Selection Factors: State:[place] Patient Contact Information Contact Name:TRISTANMAYRAFAEL Relationship: Address[address] [facility] Work Phone: City:[place] Alternate Phone: State/Zip Code:[place] [address] Email: Financial Information Financial Class:BCOP Primary Plan Desc:[address] [employer] Primary Plan Number:[id number] Secondary Plan Desc: Secondary Plan Number: Assessment Information [facility] CM Progress Note CM Note CM Note Notes: 11/03/2018 Case Management Note Discussed pt during rounds this morning. Pt admitted for hyperglycemia. Met w/pt and Hedy [phone]. 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 Pt is new to Dr. Cruz,used to see Dr. Navarro, and has not been seen yet by Dr. Cruz. Pt uses medtronic 630 pump. Pt is open with [facility] RN PT OT. Notified [facility] of admission. Faxed updates via [employer]. Pt PCP is Dr. Marylin Hyde Case Management d/c poc: resume [facility] RN PT OT Case Management to follow. Date Signed: 11/03/2018 03:14 PM Electronically Signed By:Chrissie Shelley RN Intervention Information
--- NOTE | 2018-11-04 15:41 | ASMTCMCOM ---
CM Note CM Note Notes: Pt is being d/c'd today. Pt is current w/ [facility]. No other needs at this time. CM available for changes. Date Signed: 11/04/2018 03:41 PM Electronically Signed By:NING Ricardo
--- NOTE | 2018-11-04 15:42 | ASMTLACE ---
[facility]ACE Length of stay for Answers: 2 days current admission Acuity / Level of Answers: No Care: Did the patient have an inpatient admission? Comorbidities - select Answers: Diabetes (uncontrolled or all that apply controlled) Previous myocardial infarction # of Emergency department Answers: 3-4 visits in the last 6 months Score: 7 Date Signed: 11/04/2018 03:42 PM Electronically Signed By:NING Ricardo
== END 2018-11-04 15:37 | disposition home health service (06) ==
LOC: F2W 11-03 03:11 → F3E 11-03 21:08
PROVIDERS: ADMIT Family Medicine; ATTEND Family Medicine
DX: T85.624A Displacement of insulin pump, initial encounter (principal); E10.65 Type 1 diabetes mellitus with hyperglycemia; E86.0 Dehydration; E87.1 Hypo-osmolality and hyponatremia; I10 Essential (primary) hypertension; D72.829 Elevated white blood cell count, unspecified; S22.41XD Multiple fractures of ribs, right side, subsequent encounter for fracture with routine healing; S42.101D Fracture of unspecified part of scapula, right shoulder, subsequent encounter for fracture with routine healing; S42.001D Fracture of unspecified part of right clavicle, subsequent encounter for fracture with routine healing; W06.XXXD Fall from bed, subsequent encounter; I25.10 Atherosclerotic heart disease of native coronary artery without angina pectoris; N40.0 Benign prostatic hyperplasia without lower urinary tract symptoms; Z96.41 Presence of insulin pump (external) (internal); Z95.5 Presence of coronary angioplasty implant and graft; Z95.1 Presence of aortocoronary bypass graft; Z79.82 Long term (current) use of aspirin
CPT/HCPCS: 71046; 93005; 96360; 96372; 97116; 97161; 97166; 99285; G0378; J1650; J1815

== ENCOUNTER → 2018-11-11 | Outpatient (CLI) | payer BC | LOC: FIMAGING 11:40 | PROVIDERS: ATTEND Internal Medicine | DX: R60.9 Edema, unspecified (principal) ==

== ENCOUNTER → 2019-01-08 | Outpatient (CLI) | payer BC | LOC: FIMAGING 11:51 | PROVIDERS: ATTEND Orthopaedic Surgery | DX: M75.111 Incomplete rotator cuff tear or rupture of right shoulder, not specified as traumatic (principal); M75.81 Other shoulder lesions, right shoulder; M19.011 Primary osteoarthritis, right shoulder; M95.8 Other specified acquired deformities of musculoskeletal system; S22.41XA Multiple fractures of ribs, right side, initial encounter for closed fracture ==

== ENCOUNTER → 2019-02-09 | Outpatient (CLI) | payer BC | LOC: FIMAGING 15:39 ==